=== PATIENT | male | born 1955 | race Caucasian/White ===

== ENCOUNTER 2016-06-01 08:29 | Inpatient (IN) | payer MEDICAID ==
--- NOTE | 2016-06-01 08:46 | EDPHY ---
H & P Stated Complaint: SOB while leaving [facility] this am Time Seen by Provider: 06/01/16 08:45 HPI/ROS: CHIEF COMPLAINT: Chest pain, shortness of breath, weakness, incontinence, dizziness. HISTORY OF PRESENT ILLNESS: The patient is a 61-year-old male with a history of COPD, asthma, and right lung removal who presents via EMS with right-sided chest pain, shortness of breath, and urinary incontinence. He was in the emergency department 4 days ago and diagnosed with bronchitis. He has been compliant with his antibiotics since discharge. He reports that since then he has become increasingly weak. He has been experiencing diarrhea and frequent urination and often cannot make it to the bathroom before going on himself. He admits ongoing lower back pain. Patient denies fever, nausea or vomiting. REVIEW OF SYSTEMS: Aside from elements discussed in the HPI, a comprehensive 10-point review of systems was reviewed and is negative. PAST MEDICAL HISTORY: COPD, asthma, right lung removed, bronchitis. SOCIAL HISTORY: Homeless. VITAL SIGNS: Reviewed by me, O2 sat 87% on room air. GENERAL: Disheveled. Thin, resting comfortably in no respiratory distress. HEENT: Atraumatic. Eyes: No icterus, no injection. Mouth: moist mucous membranes. Poor dentition No erythema or lesions. Neck: supple with no adenopathy. LUNGS: Bronchial breath sounds. No wheezes, rhonchi or rales. CARDIAC: Regular rate and rhythm, no rubs, murmurs or gallops. ABDOMEN: Mild RUQ pain. Soft, no guarding or rebound. BACK: Right flank pain. Diffuse lower back tenderness. EXTREMITIES: No trauma. No edema. Range of motion is normal throughout. NEURO: Alert and oriented, grossly nonfocal. SKIN: Warm and dry, no rash. PSYCHIATRIC: Normal mentation, no agitation. Portions of this note were transcribed by a medical director occupational health. I personally performed a history, physical exam, medical decision making, and confirmed accuracy of information the transcribed note. Source: Patient Exam Limitations: No limitations - Personal History Current Tetanus/Diphtheria Vaccine: Unsure Current Tetanus Diphtheria and Acellular Pertussis (TDAP): Unsure - Medical/Surgical History Hx Asthma: Yes Hx Chronic Respiratory Disease: Yes Hx Diabetes: No Hx Cardiac Disease: No Hx Renal Disease: No Hx Cirrhosis: No Hx Alcoholism: No Hx HIV/AIDS: No Hx Splenectomy or Spleen Trauma: No Other PMH: ashma, COPD, R lung removed - Social History Smoking Status: Current every day smoker Constitutional: Initial Vital Signs Temperature (C) 36.4 C 06/01/16 08:40 Heart Rate 97 06/01/16 08:40 Respiratory Rate 20 06/01/16 08:40 Blood Pressure 127/98 H 06/01/16 08:40 O2 Sat (%) 87 L 06/01/16 08:40 O2 Delivery Mode Nasal Cannula O2 (L/minute) 2 Allergies/Adverse Reactions: No Known Allergies Allergy (Verified 05/28/16 17:06) Home Medications: Medication Instructions Recorded Albuterol Sulfate [Albuterol HFA 2 puffs IH Q4-6PRN #1 inh 11/30/10 17g] AZITHROMYCIN [Z-PACK] 250 mg PO DAILY #6 tab 05/28/16 Albuterol [Proventil Inhaler HFA 1 - 2 puffs IH Q4H #1 mdi 05/28/16 (*)] Guaifenesin [Guaifenesin ER] 600 mg PO BID #14 tab.er.12h 05/28/16 predniSONE 60 mg PO DAILY #15 tab 05/28/16 Medical Decision Making - Diagnostics EKG Interpretation: 12-LEAD EKG: Please see the full report in [facility]. My interpretation: Normal sinus rhythm with ventricular premature complex and borderline right axis deviation. Unchanged from previous EKG 05/28/2016 (4 days ago). Imaging: X-ray of the chest was obtained. I viewed the images myself on the PACS system. My interpretation of the images is: Diffuse left-sided infiltrate versus edema. The radiologist interpretation is: left lower lobe pneumonia. I discussed the x-ray findings with the patient. ED Course/Re-evaluation: An IV was established and labs ordered. Chest x-ray, EKG ordered. WBC elevated at 15.01. Remainder of the patient's electrolytes are largely unremarkable. Patient's chest x-ray as interpreted by radiology as showing a developing left lower lobe pneumonia. Given his significant weakness, worsening chest x-ray, ongoing cough and shortness of breath, patient will be admitted to hospital. Patient's lactic acid is normal. Patient received Levaquin in the emergency department. 1118: Consulted with Na O'Sweeney, hospitalist. Differential Diagnosis: Differential diagnosis of the patient's weakness and cough was considered including but not limited to electrolyte abnormality, anemia, cardiac ischemia, viral versus bacterial bronchitis, asthma, COPD, pulmonary emboli, upper respiratory infection, lower respiratory infection, and bronchospasm. - Data Points Laboratory Results: Laboratory Results 06/01/16 09:40 06/01/16 09:40 06/01/16 06/01/16 10:35 09:40 WBC 15.01 H 10^3/uL (3.80-9.50) RBC 5.21 10^6/uL (4.40-6.38) Hgb 14.2 g/dL (13.7-17.5) Hct 42.5 % (40.0-51.0) MCV 81.6 fL (81.5-99.8) MCH 27.3 L pg (27.9-34.1) MCHC 33.4 g/dL (32.4-36.7) RDW 15.3 H % (11.5-15.2) Plt Count 254 10^3/uL (150-400) MPV 10.8 fL (8.7-11.7) Neut % (Auto) 79.1 H % (39.3-74.2) Lymph % (Auto) 11.7 L % (15.0-45.0) [place] % (Auto) 7.8 % (4.5-13.0) Eos % (Auto) 0.4 L % (0.6-7.6) Baso % (Auto) 0.5 % (0.3-1.7) Nucleat RBC Rel Count 0.0 % (0.0-0.2) Absolute Neuts (auto) 11.88 H 10^3/uL (1.70-6.50) Absolute Lymphs (auto) 1.76 10^3/uL (1.00-3.00) Absolute Monos (auto) 1.17 H 10^3/uL (0.30-0.80) Absolute Eos (auto) 0.06 10^3/uL (0.03-0.40) Absolute Basos (auto) 0.07 10^3/uL (0.02-0.10) Absolute Nucleated RBC 0.00 10^3/uL (0-0.01) Immature Gran % 0.5 % (0.0-1.1) Immature Gran # 0.07 10^3/uL (0.00-0.10) VBG Lactic Acid 1.0 mmol/L (0.7-2.1) Sodium 140 mEq/L (134-144) Potassium 4.2 mEq/L (3.5-5.2) Chloride 100 mEq/L (97-110) Carbon Dioxide 30 mEq/l (22-31) Anion Gap 10 mEq/L (8-16) BUN 18 mg/dL (7-23) Creatinine 0.7 mg/dL (0.7-1.3) Estimated GFR > 60 Glucose 78 mg/dL (70-100) Calcium 8.9 mg/dL (8.5-10.4) Total Bilirubin 1.2 mg/dL (0.1-1.4) Conjugated Bilirubin 0.3 mg/dL (0.0-0.5) Unconjugated Bilirubin 0.9 mg/dL (0.0-1.1) AST 47 IU/L (17-59) ALT 65 IU/L (21-72) Alkaline Phosphatase 76 IU/L (38-126) Troponin I < 0.012 ng/mL (0-0.034) NT-Pro-B Natriuret Pep 354 H pg/mL (0-125) Total Protein 6.8 g/dL (6.3-8.2) Albumin 3.5 g/dL (3.5-5.0) Urine Color YELLOW Urine Appearance CLEAR Urine pH 6.0 (5.0-7.5) Ur Specific [place] 1.017 (1.002-1.030) Urine Protein NEGATIVE (NEGATIVE) Urine Ketones NEGATIVE (NEGATIVE) Urine Blood NEGATIVE (NEGATIVE) Urine Nitrate NEGATIVE (NEGATIVE) Urine Bilirubin NEGATIVE (NEGATIVE) Urine Urobilinogen NEGATIVE EU (0.2-1.0) Ur Leukocyte Esterase NEGATIVE (NEGATIVE) Urine Glucose NEGATIVE (NEGATIVE) Influenza Typ A,B (DFA) Pending Influenza A & B (PCR) Pending Medications Given: Discontinued Medications Levofloxacin/Dextrose (Levaquin 750 Mg (Premix)) 150 mls @ 100 mls/hr IV ONCE ONE PRN Reason: Protocol Stop: 06/01/16 11:13 Last Admin: 06/01/16 10:20 Dose: 150 mls Departure - Departure Disposition: [facility] Inpatient Acute Clinical Impression: Pneumonia, Weakness Condition: Fair Referrals: NONE *PRIMARY CARE P,. [Primary Care Provider] - As per Instructions Report Scribed for: Vicky Berrios Report Scribed by: Lan Moore Date of Report: 06/01/16 Time of Report: 08:46
--- NOTE | 2016-06-01 08:52 | CPEKG ---
Heart Rate: 85 RR Interval: 706 P-R Interval: 132 QRSD Interval: 90 QT Interval: 356 QTC Interval: 424 P [place]: 49 QRS [place]: 81 T Wave [place]: 60 EKG Severity - OTHERWISE NORMAL ECG - EKG Impression: SINUS RHYTHM EKG Impression: VENTRICULAR PREMATURE COMPLEX EKG Impression: BORDERLINE RIGHT AXIS DEVIATION Electronically Signed By: Vicky Berrios 01-Jun-2016 18:12:41
--- NOTE | 2016-06-01 09:54 | DX ---
Chest, Two Views June 01, 2016 at 0851 Hours History: Dyspnea, chest pain, shortness of breath, cough, right pneumonectomy for trauma. Comparison: May 28, 2016. Findings: Status post right pneumonectomy with a large right hydropneumothorax again noted, similar t o previous study. Mediastinal shift towards the right due to right pneumonectomy. Possible early left lower lobe pneumonia. No change in partial visualization of cardiac silhouette. Impressions: 1. Prior right pneumonectomy with residual hydropneumothorax. 2. Possible early left lower lobe pneumonia.
[2016-06-01 09:57] LABS: % IMMATURE GRANULYOCYTES 0.5 % (0.0-1.1); ABSOLUTE IMMATURE GRANULOCYTES 0.07 10^3/uL (0.00-0.10); ADD DIFF? NO; ADD MORPH? NO; ADD SCAN? NO; ATYPICAL LYMPHOCYTE FLAG 0 (0-99); FRAGMENT RBC FLAG 0 (0-99); HEMATOCRIT 42.5 % (40.0-51.0); HEMOGLOBIN 14.2 g/dL (13.7-17.5); LEFT SHIFT FLG 30 (0-99); LIPEMIA HEMOLYSIS FLAG 80 (0-99); MEAN CELL HEMOGLOBIN 27.3 pg (27.9-34.1); MEAN CELL HEMOGLOBIN CONCENTR. 33.4 g/dL (32.4-36.7); MEAN CELL VOLUME 81.6 fL (81.5-99.8); MEAN PLATELET VOLUME 10.8 fL (8.7-11.7); PLATELET CLUMPS FLAG 0 (0-99); PLATELET COUNT 254 10^3/uL (150-400); RED BLOOD CELL COUNT 5.21 10^6/uL (4.40-6.38); RED CELL DISTRIBUTION WIDTH 15.3 % (11.5-15.2)
[2016-06-01 10:13] LABS: ALANINE AMINOTRANSFERASE 65 IU/L (21-72); ALBUMIN 3.5 g/dL (3.5-5.0); ALKALINE PHOSPHATASE 76 IU/L (38-126); ANION GAP 10 mEq/L (8-16); ASPARTATE AMINOTRANSFERASE 47 IU/L (17-59); BILIRUBIN,TOTAL 1.2 mg/dL (0.1-1.4); BILIRUBIN-CONJUGATED 0.3 mg/dL (0.0-0.5); BILIRUBIN-UNCONJUGATED 0.9 mg/dL (0.0-1.1); CALCIUM 8.9 mg/dL (8.5-10.4); CARBON DIOXIDE 30 mEq/l (22-31); CHLORIDE 100 mEq/L (97-110); CREATININE 0.7 mg/dL (0.7-1.3); GLOMERULAR FILTRATION RATE > 60; GLUCOSE 78 mg/dL (70-100); POTASSIUM 4.2 mEq/L (3.5-5.2); SODIUM 140 mEq/L (134-144); TOTAL PROTEIN 6.8 g/dL (6.3-8.2)
[2016-06-01 10:24] LABS: TROPONIN I < 0.012 ng/mL (0-0.034)
[2016-06-01 10:46] LABS: COLOR YELLOW; LEUKOCYTE ESTERASE,URINE NEGATIVE (NEGATIVE); NITRITE,URINE NEGATIVE (NEGATIVE)
[2016-06-01] MEDS ORDERED: IPRATROPIUM/ALBUTEROL 3 ML DEYVIAL IH ONE (10:47)
[2016-06-01] MEDS ORDERED: ONDANSETRON 4 MG/2 ML VIAL IVP PRN (11:49)
[2016-06-01] MEDS ORDERED: ONDANSETRON DISINTEGRATING 4 MG TAB PO PRN (11:49)
[2016-06-01] MEDS ORDERED: ACETAMINOPHEN 325 MG TAB PO PRN (11:49)
[2016-06-01 12:28] LABS: ETHANOL SERUM < 10 mg/dL (0-10)
[2016-06-01] MEDS: NS 1,000 ML IV SCH ×3 (12:55→21:34)
[2016-06-01] MEDS: IPRATROPIUM/ALBUTEROL 3 ML DEYVIAL IH SCH ×3 (14:00→20:39)
[2016-06-01] MEDS ORDERED: ALBUTEROL 60 PUFFS/8 GM MDI IH PRN (15:31)
--- NOTE | 2016-06-01 16:08 | GHP ---
[f rep st] HISTORY AND PHYSICAL DATE OF ADMISSION: 06/01/2016 CHIEF COMPLAINT: Shortness of breath. HISTORY OF PRESENT ILLNESS: The patient is a homeless male who presented to the emergency room with complaints of shortness of breath. He has a history of COPD as well as asthma and right lung resection. He denies any chest pain, headache, fever, or nausea and vomiting. He states that approximately a week and half ago, he became ill. He presented to the emergency room on 05/28/2016 for further evaluation. At that time he was diagnosed with bronchitis and discharged with a prescription for azithromycin and steroids. He re-presents to the emergency room today on 06/01/2016 with increased weakness as well as a cough and generalized failure to thrive. In discussion with the emergency room physician, Dr. Vicky Berrios, she indicated that the patient was incontinent of urine. He has not been incontinent of urine since arriving to the floor or during my assessment. REVIEW OF SYSTEMS: Comprehensive 10-point review of systems negative other than noted in the HPI. PAST MEDICAL HISTORY: COPD, asthma, bronchitis. PAST SURGICAL HISTORY: Right lung resection, which the patient is unable to clarify exactly why this was necessary. SOCIAL HISTORY: The patient is homeless. He tells me that he sometimes smokes methamphetamines but does not use IV drugs for the last 2 years. He smokes cigarettes. He smokes tobacco on a daily basis as well as marijuana. He has a history of heavy alcohol use. FAMILY HISTORY: Has been reviewed with the patient but is noncontributory at this time. ALLERGIES: None. PHYSICAL EXAM: GENERAL: The patient is alert, disheveled, cachectic. VITAL SIGNS: Afebrile at 36.9, pulse is 92, respiratory rate is 16, blood pressure is 102/74, is saturating 96% on 4.5 L. HEENT: Normocephalic, atraumatic. Mucosal membranes are dry. Poor dentition. NECK: Supple. LUNGS: Decreased in the bases bilaterally. No wheezes or rhonchi appreciated. CARDIOVASCULAR: There is a regular rate and rhythm. No rubs or murmurs noted. GASTROINTESTINAL : Abdomen, bowel sounds are positive. Soft and nontender. There is no guarding or rigidity appreciated. SKIN: Without rashes or lesions. Warm and dry. EXTREMITIES: No noted edema. Range of motion is intact. NEUROLOGICAL: The patient is grossly intact. HOME MEDICATIONS: Previously azithromycin, albuterol, guaifenesin. DIAGNOSTIC EVALUATION/LABORATORY: White count is 15. He is negative for the flu. EKG notes a sinus rhythm with ventricular premature complexes. Chest x- ray shows right pneumonectomy and possible early left lower lobe pneumonia. ASSESSMENT AND PLAN: The patient is a 61-year-old male who presented to the emergency room with complaint of shortness of breath. He has been evaluated and diagnosed with: 1. Community-acquired pneumonia. Patient was recently discharged 3 days prior with azithromycin and prednisone. It seems that he requires more aggressive antibiotic therapy. He has been initiated on Levaquin at the time of admission with supplemental oxygen. Will continue the pneumonia protocol during this hospitalization. 2. Acute hypoxemic respiratory failure. Again, this is likely secondary to the patient's acute pneumonia. I anticipate that this will continue to improve during the course of his hospitalization. 3. Leukocytosis. This is multifactorial given the fact the patient has infectious process as well as recent prednisone use. We will continue to monitor his laboratory evaluations. 4. History of right lung resection. This appears to be stable at this time. If further indicated, the patient may require a CT scan of his chest. 5. History of alcohol use. The patient denies going through delirium tremens when he is abstaining from alcohol. We will continue to monitor this and if needed, initiate CIWA protocol. 6. History of drug abuse as well as chronic tobacco abuse. Cessation has been recommended, and counseling has been provided. 7. Disposition: The patient will be admitted to inpatient status given the need for aggressive IV antibiotic therapy and further medical management. 8. DVT prophylaxis. I have started the patient on daily Lovenox. 9. Severe malnutrition: BMI of 14. Further action will be taken as needed during the patient's hospital course. /[id number]/MODL MTDD
[2016-06-01 16:59] LABS: PHENCYCLIDINE URINE BCH < 6 ng/ml (NEGATIVE); TETRAHYDROCANNABINOL URINE 22 ng/mL (NEGATIVE)
[2016-06-01 17:07] LABS: PHENCYCLIDINE URINE BCH NEGATIVE (NEGATIVE); TETRAHYDROCANNABINOL URINE NEGATIVE (NEGATIVE)
[2016-06-01] MEDS: guaiFENesin 600 MG TAB.ER PO SCH ×2 (21:34→21:57)
[2016-06-02 05:02] LABS: % IMMATURE GRANULYOCYTES 0.5 % (0.0-1.1); ABSOLUTE IMMATURE GRANULOCYTES 0.07 10^3/uL (0.00-0.10); ADD DIFF? NO; ADD MORPH? NO; ADD SCAN? NO; ATYPICAL LYMPHOCYTE FLAG 10 (0-99); FRAGMENT RBC FLAG 0 (0-99); HEMATOCRIT 43.6 % (40.0-51.0); HEMOGLOBIN 14.4 g/dL (13.7-17.5); LEFT SHIFT FLG 20 (0-99); LIPEMIA HEMOLYSIS FLAG 80 (0-99); MEAN CELL HEMOGLOBIN 27.2 pg (27.9-34.1); MEAN CELL VOLUME 82.4 fL (81.5-99.8); MEAN PLATELET VOLUME 10.7 fL (8.7-11.7); PLATELET CLUMPS FLAG 10 (0-99); PLATELET COUNT 228 10^3/uL (150-400); RED BLOOD CELL COUNT 5.29 10^6/uL (4.40-6.38); RED CELL DISTRIBUTION WIDTH 15.1 % (11.5-15.2)
[2016-06-02 05:08] LABS: ANION GAP 9 mEq/L (8-16); CALCIUM 8.8 mg/dL (8.5-10.4); CARBON DIOXIDE 28 mEq/l (22-31); CHLORIDE 104 mEq/L (97-110); CREATININE 0.8 mg/dL (0.7-1.3); GLOMERULAR FILTRATION RATE > 60; GLUCOSE 104 mg/dL (70-100); POTASSIUM 4.3 mEq/L (3.5-5.2); SODIUM 141 mEq/L (134-144)
[2016-06-02] MEDS: IPRATROPIUM/ALBUTEROL 3 ML DEYVIAL IH SCH ×4 (06:07→21:36)
[2016-06-02] MEDS ORDERED: ENOXAPARIN 30 MG/0.3 ML SYR SC SCH (09:00)
[2016-06-02] MEDS ORDERED: predniSONE 20 MG TAB PO SCH (09:00)
[2016-06-02] MEDS: guaiFENesin 600 MG TAB.ER PO SCH ×2 (09:41→21:27)
[2016-06-02] MEDS ORDERED: IOPAMIDOL (ISOVUE 370) 100 ML BTL IV ONE (14:02)
--- NOTE | 2016-06-02 16:07 | HOSPPROG ---
Hospitalist Progress Note Assessment/Plan: * COPD exacerbation -steroids, nebs * PNA -levaquin * Acute respiratory failure -wean O2 back to RA prior to discharge * Hemoptysis -check CT chest r/o malignancy, PE * Severe protein calorie malnutrition - BMI 14 * s/p right lung lobectomy due to trauma * Tobacco dependence * Meth/THC/Etoh use * Homeless Subjective: Still very SOB, no better, coughing up blood Objective: Vital Signs Temp Pulse Resp BP Pulse Ox 37.5 C 105 H 16 94/76 L 95 06/02/16 12:00 06/02/16 12:00 06/02/16 12:00 06/02/16 12:00 06/02/16 12:00 Laboratory Results 06/02/16 04:41 06/02/16 04:41 06/01/16 06/02/16 06/03/16 05:59 05:59 05:59 Output Total 1175 Balance -1175 - Physical Exam Constitutional: no apparent distress, appears nourished, not in pain Cardiovascular: regular rate and rhythym, no murmur, rub, or gallop Respiratory: no respiratory distress, no rales or rhonchi, clear to auscultation Gastrointestinal: normoactive bowel sounds, soft, non-tender abdomen, no palpable masses Skin: no rashes or abrasions, no fluctuance, no induration Neurologic: AAOx3, sensation intact bilaterally Psychiatric: interacting appropriately, not anxious, not encephalopathic, thought process linear ICD10 Worksheet Patient Problems: Problems Problem Status Diagnosed Pneumonia Acute Weakness Acute
--- NOTE | 2016-06-02 17:02 | CT ---
Contrast-Enhanced CT Scan of the Chest (CT Pulmonary Artery Angiography) Clinical History: 61-year-old male inpatient with shortness of breath and hypoxia. Rule out PE. Technique: A timing bolus was used. The patient received 90 mL of IV Isovue-370 without complication, and a multidetector helical CT scan was obtained from the base the neck inferiorly to the upper abdo men, with images reformatted at 1.50 and 4/3 mm increments, and reviewed at a variety of window and l evel settings. Multiplanar reconstructions are reviewed on the workstation. The DFOV is 36.0 cm. A do se reduction protocol was used. Comparison Study: Chest radiography dated June 01, 2016, at 8:51 a.m. Findings: CT Angiography: The patient has had a prior right pneumonectomy with a right hemithoracic hydropneumo thorax is present. The main right pulmonary artery is truncated distally; however, there is a rounded filling defect measuring 17 x 14 mm in diameter seem distally on the right side. There is no migrati on of the filling defect to the bifurcation, or involvement of the main pulmonary artery, the main le ft pulmonary artery, or the left first, second, or third order pulmonary artery segments. The thoraci c aortic contour is normal in size, with no aneurysm or dissection. There is a normal anatomic course of the great vessels off of the aortic arch. The descending thoracic aorta and the visualized upper abdominal aorta appear normal. The heart size is normal. There is trace anterior/inferior pericardial thickening. Contrast-Enhanced CT Scan of the Chest: As mentioned above, there is volume loss associated with a ri ght pneumonectomy, with the presence of a right hydropneumothorax (there are old posttraumatic change s to the right rib cage). There is hyperexpansion of the left lung. Mild medial left apical subpleura l bullous change is noted. There is some minimal subpleural thickening posteriorly in the left lower lobe, and there is a 10 mm irregularly-marginated subpleural nodule seen in the left lower lobe on se jenni 7, image 123 (this is nonspecific, and followup CT imaging in 3 to 6 months is recommended). The re is no pleural effusion on the left side, and there is no adenopathy. The thoracic vertebral body h eights and posterior alignments are maintained. The visualized upper abdomen is notable for moderate gastric distention with ingested debris, and moderate constipation. Impression: 1. The patient has had a prior right pneumonectomy and the main right pulmonary artery is truncated d istally; however, there is a 17 x 14 mm filling defect suggestive of pulmonary artery embolus. There is no migration of embolic material into the left pulmonary arterial tree. 2. Left lung hyperexpansion with some subpleural bullous change. 3. There is a 10 mm subpleural nodule seen in the posterior left lower lobe, which could represent so me subsegmental atelectasis, scar, or a groundglass nodule of other etiology; consider followup CT re evaluation in 3 to 6 months. Results regarding the PE were conveyed to Sultana the nurse on 3E at extension [id number]. A test result has been communicated to a licensed care provider and documented in [employer], 4:57:04 PM , 06/02/2016, [employer] Message ID [id number].
[2016-06-02 17:49] LABS: INR 1.16 (0.83-1.16); PROTIME(PATIENT) 14.8 SEC (12.0-15.0)
[2016-06-02 17:50] LABS: APTT 28.9 SEC (23.0-38.0)
[2016-06-02] MEDS ORDERED: HEPARIN 10,000 UNIT/10 ML MDV IVP ONE (18:00)
[2016-06-02] MEDS: HEPARIN 10,000 UNIT/10 ML MDV IVP PRN (18:09)
[2016-06-02] MEDS: HEPARIN/DEXTROSE 500 ML IV SCH (19:22)
[2016-06-02] MEDS ORDERED: IBUPROFEN 600 MG TAB PO ONE (21:43)
[2016-06-03] MEDS: HYDROCODONE/APAP 5/325 TAB PO PRN ×3 (00:20→20:04)
[2016-06-03] MEDS: HEPARIN 10,000 UNIT/10 ML MDV IVP PRN ×3 (01:51→15:04)
[2016-06-03] MEDS: IPRATROPIUM/ALBUTEROL 3 ML DEYVIAL IH SCH ×4 (06:07→21:06)
[2016-06-03 06:51] LABS: % IMMATURE GRANULYOCYTES 0.9 % (0.0-1.1); ABSOLUTE IMMATURE GRANULOCYTES 0.19 10^3/uL (0.00-0.10); ADD DIFF? NO; ADD MORPH? NO; ADD SCAN? NO; ATYPICAL LYMPHOCYTE FLAG 10 (0-99); FRAGMENT RBC FLAG 0 (0-99); HEMATOCRIT 38.6 % (40.0-51.0); HEMOGLOBIN 12.8 g/dL (13.7-17.5); LEFT SHIFT FLG 30 (0-99); LIPEMIA HEMOLYSIS FLAG 80 (0-99); MEAN CELL HEMOGLOBIN 27.1 pg (27.9-34.1); MEAN CELL HEMOGLOBIN CONCENTR. 33.2 g/dL (32.4-36.7); MEAN CELL VOLUME 81.8 fL (81.5-99.8); MEAN PLATELET VOLUME 10.9 fL (8.7-11.7); PLATELET CLUMPS FLAG 0 (0-99); PLATELET COUNT 234 10^3/uL (150-400); RED BLOOD CELL COUNT 4.72 10^6/uL (4.40-6.38); RED CELL DISTRIBUTION WIDTH 15.1 % (11.5-15.2)
[2016-06-03] MEDS: guaiFENesin 600 MG TAB.ER PO SCH ×2 (08:54→20:00)
[2016-06-03] MEDS: predniSONE 20 MG TAB PO SCH (08:55)
[2016-06-03] MEDS: HEPARIN/DEXTROSE 500 ML IV SCH (15:06)
--- NOTE | 2016-06-03 16:36 | HOSPPROG ---
Hospitalist Progress Note Assessment/Plan: * COPD exacerbation with acute bronchitis -steroids, nebs, doxycycline * Acute PE -IV heparin - will transition to PO Xarelto * Pulmonary nodule -outpatient follow-up * Acute respiratory failure -wean O2 back to RA prior to discharge * Severe protein calorie malnutrition - BMI 14 * s/p right lung lobectomy due to trauma * Tobacco dependence * Meth/THC/Etoh use * Homeless Subjective: Still SOB Objective: Vital Signs Temp Pulse Resp BP Pulse Ox 36.8 C 94 18 97/65 L 93 06/03/16 16:00 06/03/16 16:00 06/03/16 16:00 06/03/16 16:00 06/03/16 16:00 Laboratory Results 06/03/16 06:40 06/02/16 04:41 06/02/16 06/03/16 06/04/16 05:59 05:59 05:59 Intake Total 640 Output Total 1175 500 600 Balance -1175 -500 40 PT 14.8 SEC (12.0-15.0) 06/02/16 17:34 INR 1.16 (0.83-1.16) 06/02/16 17:34 - Physical Exam Constitutional: no apparent distress, appears nourished, not in pain Cardiovascular: regular rate and rhythym, no murmur, rub, or gallop Respiratory: no respiratory distress, no rales or rhonchi, clear to auscultation Gastrointestinal: normoactive bowel sounds, soft, non-tender abdomen, no palpable masses Skin: no rashes or abrasions, no fluctuance, no induration Neurologic: AAOx3, sensation intact bilaterally Psychiatric: interacting appropriately, not anxious, not encephalopathic, thought process linear ICD10 Worksheet Patient Problems: Problems Problem Status Diagnosed Pneumonia Acute Weakness Acute
[2016-06-03] MEDS: RIVAROXABAN 15 MG TAB PO SCH (16:57)
[2016-06-03] MEDS: DOXYCYCLINE HYCLATE 100 MG CAP/TAB PO SCH (20:00)
[2016-06-04] MEDS: IPRATROPIUM/ALBUTEROL 3 ML DEYVIAL IH SCH ×4 (05:27→21:32)
[2016-06-04 05:29] LABS: % IMMATURE GRANULYOCYTES 1.6 % (0.0-1.1); ABSOLUTE IMMATURE GRANULOCYTES 0.29 10^3/uL (0.00-0.10); ADD DIFF? NO; ADD MORPH? NO; ADD SCAN? NO; ATYPICAL LYMPHOCYTE FLAG 10 (0-99); FRAGMENT RBC FLAG 20 (0-99); HEMOGLOBIN 12.6 g/dL (13.7-17.5); LEFT SHIFT FLG 50 (0-99); LIPEMIA HEMOLYSIS FLAG 80 (0-99); MEAN CELL HEMOGLOBIN 27.2 pg (27.9-34.1); MEAN CELL HEMOGLOBIN CONCENTR. 32.3 g/dL (32.4-36.7); MEAN CELL VOLUME 84.1 fL (81.5-99.8); MEAN PLATELET VOLUME 11.8 fL (8.7-11.7); PLATELET CLUMPS FLAG 0 (0-99); PLATELET COUNT 257 10^3/uL (150-400); RED BLOOD CELL COUNT 4.64 10^6/uL (4.40-6.38); RED CELL DISTRIBUTION WIDTH 15.6 % (11.5-15.2)
[2016-06-04] MEDS: RIVAROXABAN 15 MG TAB PO SCH ×2 (08:06→17:55)
[2016-06-04] MEDS: DOXYCYCLINE HYCLATE 100 MG CAP/TAB PO SCH ×2 (08:06→21:11)
[2016-06-04] MEDS: guaiFENesin 600 MG TAB.ER PO SCH (08:06)
[2016-06-04] MEDS: predniSONE 20 MG TAB PO SCH (08:07)
--- NOTE | 2016-06-04 13:14 | HOSPPROG ---
Hospitalist Progress Note Assessment/Plan: * COPD exacerbation with acute bronchitis -steroids, nebs, doxycycline * Acute PE -PO Xarelto * Pulmonary nodule -outpatient follow-up * Acute respiratory failure -wean O2 back to RA prior to discharge * Severe protein calorie malnutrition - BMI 14 * s/p right lung lobectomy due to trauma * Tobacco dependence * Meth/THC/Etoh use * Homeless Subjective: SOB better Objective: Vital Signs Temp Pulse Resp BP Pulse Ox 36.8 C 79 18 113/79 89 L 06/04/16 07:22 06/04/16 10:28 06/04/16 10:28 06/04/16 07:22 06/04/16 10:28 Laboratory Results 06/04/16 04:27 06/02/16 04:41 06/03/16 06/04/16 06/05/16 05:59 05:59 05:59 Intake Total 1290 Output Total 500 1200 Balance -500 90 PT 14.8 SEC (12.0-15.0) 06/02/16 17:34 INR 1.16 (0.83-1.16) 06/02/16 17:34 - Physical Exam Constitutional: no apparent distress, appears nourished, not in pain Cardiovascular: regular rate and rhythym, no murmur, rub, or gallop Respiratory: no respiratory distress, no rales or rhonchi, clear to auscultation Gastrointestinal: normoactive bowel sounds, soft, non-tender abdomen, no palpable masses Skin: no rashes or abrasions, no fluctuance, no induration Neurologic: AAOx3, sensation intact bilaterally Psychiatric: interacting appropriately, not anxious, not encephalopathic, thought process linear ICD10 Worksheet Patient Problems: Problems Problem Status Diagnosed Pneumonia Acute Weakness Acute
[2016-06-04] MEDS: HYDROCODONE/APAP 5/325 TAB PO PRN (21:10)
[2016-06-05] MEDS: IPRATROPIUM/ALBUTEROL 3 ML DEYVIAL IH SCH (06:12)
[2016-06-05 06:22] LABS: ADD DIFF? YES; ADD MORPH? NO; ADD SCAN? NO; ATYPICAL LYMPHOCYTE FLAG 20 (0-99); FRAGMENT RBC FLAG 0 (0-99); HEMATOCRIT 40.4 % (40.0-51.0); HEMOGLOBIN 13.4 g/dL (13.7-17.5); LEFT SHIFT FLG 30 (0-99); LIPEMIA HEMOLYSIS FLAG 80 (0-99); MEAN CELL HEMOGLOBIN 27.3 pg (27.9-34.1); MEAN CELL HEMOGLOBIN CONCENTR. 33.2 g/dL (32.4-36.7); MEAN CELL VOLUME 82.3 fL (81.5-99.8); MEAN PLATELET VOLUME 10.9 fL (8.7-11.7); PLATELET CLUMPS FLAG 0 (0-99); PLATELET COUNT 298 10^3/uL (150-400); RED BLOOD CELL COUNT 4.91 10^6/uL (4.40-6.38); RED CELL DISTRIBUTION WIDTH 15.6 % (11.5-15.2)
[2016-06-05 06:58] LABS: ACANTHOCYTES 1+; ELLIPTOCYTES 1+; GIANT PLATELETS PRESENT; PLATELET ESTIMATE ADEQUATE (ADEQ); TOXIC GRANULATION PRESENT
[2016-06-05] MEDS: RIVAROXABAN 15 MG TAB PO SCH ×2 (08:46→17:52)
[2016-06-05] MEDS: DOXYCYCLINE HYCLATE 100 MG CAP/TAB PO SCH ×2 (08:47→20:19)
[2016-06-05] MEDS: predniSONE 20 MG TAB PO SCH (08:47)
[2016-06-05] MEDS ORDERED: GABAPENTIN 300 MG CAP PO ONE (10:13)
[2016-06-05] MEDS ORDERED: ALBUTEROL 3 ML DEYVIAL IH PRN (10:16)
[2016-06-05] MEDS: TIOTROPIUM INHALER 18 MCG/DOSE 5 DOSE/MDI IH SCH (10:39)
[2016-06-05] MEDS: FLUTICASONE/SALMETER 250/50MCG DISKUS IH SCH ×2 (10:39→22:11)
[2016-06-05] MEDS: NICOTINE 21 MG/24 HR PATCH TD SCH (11:04)
--- NOTE | 2016-06-05 14:48 | HOSPPROG ---
Hospitalist Progress Note Assessment/Plan: * COPD exacerbation with acute bronchitis -steroids, nebs, doxycycline * Acute PE -PO Xarelto * Pulmonary nodule -outpatient follow-up * Acute respiratory failure -back to RA * Severe protein calorie malnutrition - BMI 14 * s/p right lung lobectomy due to trauma * Recent frostbite with residual neuropathy -start gabapentin * Tobacco dependence -patch * Meth/THC/Etoh use * Homeless - arranging SNF Subjective: No new complaints. Constant burning of feet since frostbite, no residual skin breakdown. Objective: Vital Signs Temp Pulse Resp BP Pulse Ox 36.7 C 93 18 109/69 90 L 06/05/16 07:57 06/05/16 07:57 06/05/16 07:57 06/05/16 07:57 06/05/16 07:57 Laboratory Results 06/05/16 05:08 06/02/16 04:41 06/04/16 06/05/16 06/06/16 05:59 05:59 05:59 Intake Total 1290 200 Output Total 1200 1125 1150 Balance 90 -925 -1150 PT 14.8 SEC (12.0-15.0) 06/02/16 17:34 INR 1.16 (0.83-1.16) 06/02/16 17:34 - Physical Exam Constitutional: no apparent distress, appears nourished, not in pain Cardiovascular: regular rate and rhythym, no murmur, rub, or gallop Respiratory: no respiratory distress, no rales or rhonchi, clear to auscultation Gastrointestinal: normoactive bowel sounds, soft, non-tender abdomen, no palpable masses Skin: no rashes or abrasions, no fluctuance, no induration Neurologic: AAOx3, sensation intact bilaterally Psychiatric: interacting appropriately, not anxious, not encephalopathic, thought process linear ICD10 Worksheet Patient Problems: Problems Problem Status Diagnosed Pneumonia Acute Weakness Acute
[2016-06-06 05:28] LABS: ADD DIFF? YES; ADD MORPH? NO; ADD SCAN? NO; ATYPICAL LYMPHOCYTE FLAG 20 (0-99); FRAGMENT RBC FLAG 0 (0-99); HEMATOCRIT 44.9 % (40.0-51.0); HEMOGLOBIN 14.8 g/dL (13.7-17.5); LEFT SHIFT FLG 40 (0-99); LIPEMIA HEMOLYSIS FLAG 80 (0-99); MEAN CELL HEMOGLOBIN 26.6 pg (27.9-34.1); MEAN CELL VOLUME 80.8 fL (81.5-99.8); MEAN PLATELET VOLUME 10.9 fL (8.7-11.7); PLATELET CLUMPS FLAG 10 (0-99); PLATELET COUNT 326 10^3/uL (150-400); RED BLOOD CELL COUNT 5.56 10^6/uL (4.40-6.38); RED CELL DISTRIBUTION WIDTH 15.6 % (11.5-15.2)
[2016-06-06 06:28] LABS: ELLIPTOCYTES 1+; PLATELET ESTIMATE ADEQUATE (ADEQ)
[2016-06-06 07:18] VITALS: BP 105/80; TEMP 97.6; O2SAT 93
[2016-06-06] MEDS: DOXYCYCLINE HYCLATE 100 MG CAP/TAB PO SCH (07:55)
[2016-06-06] MEDS: RIVAROXABAN 15 MG TAB PO SCH ×2 (07:55→17:13)
[2016-06-06] MEDS: NICOTINE 21 MG/24 HR PATCH TD SCH (07:56)
[2016-06-06] MEDS ORDERED: GABAPENTIN 300 MG CAP PO SCH (09:00)
[2016-06-06] MEDS: predniSONE 20 MG TAB PO SCH (09:14)
[2016-06-06] MEDS: TIOTROPIUM INHALER 18 MCG/DOSE 5 DOSE/MDI IH SCH (09:40)
[2016-06-06] MEDS: FLUTICASONE/SALMETER 250/50MCG DISKUS IH SCH (09:40)
[2016-06-06 09:45] VITALS: PULSE 82; RESP 18
--- NOTE | 2016-06-06 10:41 | PDIAF ---
- Diagnosis Diagnosis: COPD exacerbation Code Status: Full Code - Medication Management Discharge Medications: Medications to Continue on Transfer Guaifenesin [Guaifenesin ER] 600 mg PO BID #14 tab.er.12h 05/28/16 [Last Taken 06/01/16] Albuterol [Proventil Inhaler HFA (*)] 1 - 2 puffs IH Q4H PRN 06/01/16 [Last Taken Unknown] Doxycycline Hyclate [Vibramycin 100 MG (*)] 100 mg PO BID #0 capsule 06/06/16 [ Last Taken Unknown] Fluticasone/Salmeter 250/50Mcg [Advair 250/50 (*)] 1 puffs IH BID #0 disk [Last Taken Unknown] Gabapentin [Neurontin 300 MG (*)] 300 mg PO BID #0 cap 06/06/16 [Last Taken Unknown] Hydrocodone/APAP 5/325 [[place] 5/325 (*)] 1 - 2 tab PO Q4HRS PRN #0 tab 06/06/16 [Last Taken Unknown] Nicotine [Nicoderm Cq 21 mg (*)] 21 mg TD DAILY #0 patch 06/06/16 [Last Taken Unknown] Rivaroxaban [Xarelto 15mg (*)] 15 mg PO BIDMEAL #0 tab 06/06/16 [Last Taken Unknown] Tiotropium Inhaler [Spiriva Handihaler] 18 mcg IH DAILY #0 mdi 06/06/16 [Last Taken Unknown] predniSONE 40 mg PO DAILY #0 tablet 06/06/16 [Last Taken Unknown] Fdc Antibiotics: doxycycline 100mg PO BID - dc on 06/11/16; pred 40mg PO daily - dc on 06/07/16 Discharge Medications: Refer to the Discharge Home Medication list for PRN reason. - Orders Services needed: Registered Nurse, Certified Medical Assistant Prn, Physical Therapy, Occupational Therapy - Follow Up Care Current Providers and Referrals: NONE *PRIMARY CARE P,. [Primary Care Provider] - As per Instructions
--- NOTE | 2016-06-06 10:58 | GDS ---
[f rep st] DISCHARGE SUMMARY ALL DIAGNOSES: 1. Chronic obstructive pulmonary disease exacerbation with acute bronchitis. 2. Acute pulmonary embolus. 3. Pulmonary nodule needing outpatient followup. 4. Acute respiratory failure, currently on room air. 5. Severe protein calorie malnutrition. 6. 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 7. Next recent frostbite with some neuropathy. 8. Tobacco dependence. 9. Homeless. HOSPITAL COURSE: This is a 61-year-old man who was admitted with shortness of breath. Etiology is l ikely COPD exacerbation, as well as pulmonary embolus. He has been treated for a COPD exacerbation w ith steroids, doxycycline, and nebulizers. Recommend that he discontinue steroids on 06/07/2016, aft er his dose on that day, discontinue doxycycline on 06/11/2016, after his doses on that day. He has been started on Xarelto for a pulmonary embolus. He is currently getting 15 mg p.o. b.i.d. R ecommendation is for b.i.d. dosing for 21 days, then switch to daily dosing of 20 mg daily. He recei jose carlos 1 dose of Xarelto on 06/03/2016, at 5 p.m. He had an incidental pulmonary nodule seen on CT scan. This will need outpatient followup. Recommen dation is CT re-evaluation in 3-6 months. He had recent frostbite, has residual neuropathy. Has been started on gabapentin since he has been a dmitted here. BILLING: I spent more than 30 minutes on the day of discharge coordinating care. /[id number]/MODL
== END 2016-06-06 17:38 | DRG 175 ==
LOC: EDUNIT# → OBSVTOIN 11:49 → F3E 12:12
PROVIDERS: ADMIT Hospitalist; ATTEND Student in an Organized Health Care Education/Training Program
DX: I26.99 Other pulmonary embolism without acute cor pulmonale (principal); J44.0 Chronic obstructive pulmonary disease with (acute) lower respiratory infection; J44.1 Chronic obstructive pulmonary disease with (acute) exacerbation; J96.01 Acute respiratory failure with hypoxia; E43 Unspecified severe protein-calorie malnutrition; Z68.1 Body mass index [BMI] 19.9 or less, adult; G60.8 Other hereditary and idiopathic neuropathies; X31.XXXS Exposure to excessive natural cold, sequela; F17.210 Nicotine dependence, cigarettes, uncomplicated; R91.8 Other nonspecific abnormal finding of lung field; Z90.2 Acquired absence of lung [part of]; Z59.0 Homelessness
CPT/HCPCS: 85520-90; 96365; 97116-GP; 97162-GP; 97165-GO; 97535-GO; G0479; G0480; J1644; J1650; J1956; Q9967

== ENCOUNTER 2016-07-20 21:56 | Observation (INO) | payer MEDICAID ==
[2016-07-20] MEDS ORDERED: methylPREDNISolone SOD SUCC 125 MG/2 ML VIAL IVP ONE (22:03)
[2016-07-20] MEDS ORDERED: IPRATROPIUM/ALBUTEROL 3 ML DEYVIAL IH ONE (22:03)
--- NOTE | 2016-07-20 22:08 | EDPHY ---
H & P Stated Complaint: SOB and cough beginning today, Hx of PE Time Seen by Provider: 07/20/16 22:01 HPI/ROS: CHIEF COMPLAINT: Shortness of breath HISTORY OF PRESENT ILLNESS: Patient is a 61-year-old homeless man who comes from the [facility] complaining of a cough and shortness of breath. He has a history of COPD and was admitted for an exacerbation 2 months ago. At that time he was also found to have a pulmonary embolus and was started on Xarelto. He states that he has not taken that since being discharged from the hospital. He claims that he was not given a prescription. He also has a history of right Pneumonectomy secondary to trauma remotely. Also tobacco dependence. He is hypoxic at 87% on room air on arrival and has a fever 37.9. REVIEW OF SYSTEMS: Constitutional: denies: chills, fever, recent illness, recent injury EENTM: denies: blurred vision, double vision, nose congestion Respiratory: See HPI Cardiac: denies: chest pain, irregular heart rate, lightheadedness, palpitations Gastrointestinal/Abdominal: denies: abdominal pain, diarrhea, nausea, vomiting, blood streaked stools Genitourinary: denies: dysuria, frequency, hematuria, pain Musculoskeletal: denies: joint pain, muscle pain Skin: denies: lesions, rash, jaundice, bruising Neurological: denies: headache, numbness, paresthesia, tingling, dizziness, weakness Hematologic/Lymphatic: denies: blood clots, easy bleeding, easy bruising Immunologic/allergic: denies: HIV/AIDS, transplant EXAM: GENERAL: Well-appearing, well-nourished and in no acute distress. HEAD: Atraumatic, normocephalic. EYES: Pupils equal round and reactive to light, extraocular movements intact, sclera anicteric, conjunctiva are normal. ENT: TMs normal, nares patent, oropharynx clear without exudates. Moist mucous membranes. NECK: Normal range of motion, supple without lymphadenopathy or JVD. LUNGS: Amari breath sounds bilaterally but difficult to tell because patient groans with exhalation. HEART: Regular rate and rhythm without murmurs, rubs or gallops. ABDOMEN: Soft, nontender, normoactive bowel sounds. No guarding, no rebound. No masses appreciated. BACK: No CVA tenderness, no spinal tenderness, step-offs or deformities EXTREMITIES: Normal range of motion, no pitting or edema. No clubbing or cyanosis. NEUROLOGICAL: Cranial nerves II through XII grossly intact. Normal speech, normal gait. 5/5 strength, normal movement in all extremities, normal sensation PSYCH: Normal mood, normal affect. SKIN: Warm, dry, normal turgor, no visible rashes or lesions. Source: Patient Exam Limitations: No limitations - Personal History Current Tetanus/Diphtheria Vaccine: Unsure Current Tetanus Diphtheria and Acellular Pertussis (TDAP): Unsure - Medical/Surgical History Hx Asthma: Yes Hx Chronic Respiratory Disease: Yes Hx Diabetes: No Hx Cardiac Disease: No Hx Renal Disease: No Hx Cirrhosis: No Hx Alcoholism: No Hx HIV/AIDS: No Hx Splenectomy or Spleen Trauma: No Other PMH: ashma, COPD, R pneumonectomy, PE - Family History Significant Family History: No pertinent family hx - Social History Smoking Status: Current every day smoker Alcohol Use: Heavy Drug Use: Marijuana Constitutional: Initial Vital Signs Temperature (C) 37.9 C 07/20/16 22:04 Heart Rate 100 07/20/16 22:04 Respiratory Rate 20 07/20/16 22:04 Blood Pressure 137/80 H 07/20/16 22:04 O2 Sat (%) 87 L 07/20/16 22:04 O2 Delivery Mode Room Air O2 (L/minute) 2 Allergies/Adverse Reactions: No Known Allergies Allergy (Verified 05/28/16 17:06) Home Medications: Medication Instructions Recorded Albuterol [Proventil Inhaler HFA 1 - 2 puffs IH Q4HRS PRN 06/01/16 (*)] Medical Decision Making - Diagnostics EKG Interpretation: An EKG obtained and was read and documented in trace view. Please see trace view for full reading and report. Sinus rhythm, unchanged from previous ED Course/Re-evaluation: The patient has an untreated pulmonary embolism and a history of COPD and comes in with a fever and cough. Will obtain a CT of his chest and initiate pneumonia /sepsis workup. 11:00 p.m. the patient is feeling much better after albuterol. Flu swab was just sent. chest CT reveals pulmonary embolism that is unchanged compared to previous and is sitting in the blind ending pulmonary artery where the right pneumonectomy was. It does not appear to be affecting his respiration. No sign of pneumonia seen. Will continue treating for COPD and await flu results. I have paged hospital service for admission. He is still requiring oxygen to stay above 90%. 11:[address] Chaudhry who will admit. We will anticoagulate the patient to try and prevent extension of the PE although currently it is not clinically relevant. CT reading pending Differential Diagnosis: Partial list of the Differential diagnosis considered include but were not limited to; PE, pneumonia, COPD, influenza and although unlikely based on the history and physical exam, I also considered pneumothorax, acute coronary disease. - Data Points Laboratory Results: Laboratory Results 07/20/16 22:00 07/20/16 22:00 Medications Given: Discontinued Medications Albuterol/Ipratropium (Duoneb) 3 ml IH EDNOW ONE Stop: 07/20/16 22:04 Last Admin: 07/20/16 22:21 Dose: 3 ml Sodium Chloride (Ns) 500 mls @ 0 mls/hr IV EDNOW ONE PRN Reason: Wide Open Stop: 07/20/16 22:38 Last Admin: 07/20/16 22:15 Dose: 500 mls Heparin Sodium (Porcine) (Heparin 50 Units/Ml (Premix)) 500 mls @ 0 mls/hr IV EDNOW ONE; Per Protocol PRN Reason: Protocol Stop: 07/20/16 23:11 Last Admin: 07/20/16 23:30 Dose: 500 mls Methylprednisolone Sodium Succinate (Solu-Medrol) 125 mg IVP EDNOW ONE Stop: 07/20/16 22:04 Last Admin: 07/20/16 22:21 Dose: 125 mg Departure - Departure Disposition: Home, Routine, Self-Care Clinical Impression: Chronic obstructive pulmonary disease with acute exacerbation Pulmonary embolism Qualifiers: Pulmonary embolism type: other Chronicity: acute Acute cor pulmonale presence: without acute cor pulmonale Qualified Code(s): I26.99 - Other pulmonary embolism without acute cor pulmonale Condition: Fair
--- NOTE | 2016-07-20 22:13 | CPEKG ---
Heart Rate: 94 RR Interval: 638 P-R Interval: 144 QRSD Interval: 96 QT Interval: 368 QTC Interval: 461 P [place]: 41 QRS [place]: 75 T [place]: 47 EKG Severity - NORMAL ECG - EKG Impression: SINUS RHYTHM EKG Impression: Unchanged from previous Electronically Signed By: Ajay Kellogg 20-Jul-2016 22:23:37
[2016-07-20 22:15] LABS: % IMMATURE GRANULYOCYTES 0.3 % (0.0-1.1); ABSOLUTE IMMATURE GRANULOCYTES 0.03 10^3/uL (0.00-0.10); ADD DIFF? NO; ADD MORPH? NO; ADD SCAN? NO; ATYPICAL LYMPHOCYTE FLAG 20 (0-99); FRAGMENT RBC FLAG 0 (0-99); HEMATOCRIT 46.2 % (40.0-51.0); HEMOGLOBIN 14.8 g/dL (13.7-17.5); LEFT SHIFT FLG 0 (0-99); LIPEMIA HEMOLYSIS FLAG 80 (0-99); MEAN CELL HEMOGLOBIN 27.5 pg (27.9-34.1); MEAN CELL VOLUME 85.7 fL (81.5-99.8); MEAN PLATELET VOLUME 11.4 fL (8.7-11.7); PLATELET CLUMPS FLAG 0 (0-99); PLATELET COUNT 283 10^3/uL (150-400); RED BLOOD CELL COUNT 5.39 10^6/uL (4.40-6.38); RED CELL DISTRIBUTION WIDTH 15.7 % (11.5-15.2)
[2016-07-20 22:17] LABS: ANION GAP 11 mEq/L (8-16); BILIRUBIN,TOTAL 0.8 mg/dL (0.1-1.4); CALCIUM 9.5 mg/dL (8.5-10.4); CARBON DIOXIDE 31 mEq/l (22-31); CHLORIDE 104 mEq/L (97-110); CREATININE 0.8 mg/dL (0.7-1.3); GLOMERULAR FILTRATION RATE > 60; GLUCOSE 93 mg/dL (70-100); POTASSIUM 4.6 mEq/L (3.5-5.2); SODIUM 146 mEq/L (134-144)
[2016-07-20] MEDS ORDERED: IOPAMIDOL (ISOVUE 370) 100 ML BTL IV ONE ×2 (22:29→22:42)
[2016-07-20] MEDS ORDERED: NS 500 ML IV ONE (22:37)
[2016-07-20] MEDS ORDERED: HEPARIN/DEXTROSE 500 ML IV ONE (23:10)
[2016-07-20 23:25] LABS: INR 1.09 (0.83-1.16)
[2016-07-20] MEDS ORDERED: ACETAMINOPHEN 325 MG TAB PO PRN (23:47)
[2016-07-20] MEDS ORDERED: ONDANSETRON DISINTEGRATING 4 MG TAB PO PRN (23:47)
[2016-07-20] MEDS ORDERED: ONDANSETRON 4 MG/2 ML VIAL IVP PRN (23:47)
[2016-07-20] MEDS ORDERED: ALBUTEROL 3 ML DEYVIAL IH PRN (23:53)
[2016-07-20] MEDS ORDERED: MAG HYDROX/AL HYDROX/SIMETH 30 ML UDCUP PO PRN (23:54)
[2016-07-20] MEDS ORDERED: LORazepam 2 MG/ML INJ IVP PRN (23:54)
--- NOTE | 2016-07-20 23:59 | PDGENHP ---
History and Physical - Chief Complaint shortness of breath - History of Present Illness Patient is a 61 year old homeless male with COPD/chronic bronchitis, polysubstance abuse (alcohol, methamphetamine, tobacco), history of lung resection for unclear reason and recently diagnosed pulmonary embolism (06/2016, noncompliant with outpatient xarelto) who presents to the ED complaining of shortness of breath and cough. Patient states symptoms started about 2-3 days ago, with wheezing and cough productive of sputum. He then developed some pleuritic-type chest pain and dyspnea continued to worsen, so he came into the ED. He denies any associated fever, chills, headache, dizziness, pressure-like chest pain or palpitations. On arrival to the ED, patient was afebrile, slightly tachycardic and hypoxic on room air. Labs, including CBC and BMP were within normal limits. CT chest was obtained and revealed persistent R main stem pulm artery PE, unchanged, and no evidence of pneumonia. He was given IV steroids and nebs for an acute COPD exacerbation and admitted to the hospitalist service for further management. History Information - Allergies/Home Medication List Allergies/Adverse Reactions: No Known Allergies Allergy (Verified 05/28/16 17:06) Home Medications: Albuterol [Proventil Inhaler HFA (*)] 1 - 2 puffs IH Q4H PRN 06/01/16 [Last Taken Unknown] I have personally reviewed and updated: family history, medical history, social history, surgical history - Past Medical History Additional medical history: COPD. active tobacco use. chronic, heavy alcohol use. R main PA pulmonary embolism (06/2016) - Surgical History Additional surgical history: R lung resection, reason for this unclear - Family History Positive for: non-pertinent - Social History Smoking Status: Current every day smoker Alcohol Use: Heavy (1/2-1 pint of liquor daily) Drug Use: Marijuana, Other (previous history of amphetamine use) Review of Systems ROS: 10pt was reviewed & negative except for what was stated in HPI & below Physical Exam Temp Pulse Resp BP Pulse Ox 37.9 C 99 20 129/85 H 97 07/20/16 22:04 07/20/16 23:04 07/20/16 23:04 07/20/16 23:04 07/20/16 23:04 Constitutional: no apparent distress, appears nourished, not in pain, unkempt Eyes: PERRL, anicteric sclera, EOMI Ears, Nose, Mouth, Throat: moist mucous membranes, hearing normal, ears appear normal, no oral mucosal ulcers Cardiovascular: regular rate and rhythym, no murmur, rub, or gallop, pulses symmetric bilaterally, No JVD, No edema Peripheral Pulses: 2+: dorsalis-pedis (R), dorsalis-pedis (L) Respiratory: no respiratory distress, expiratory wheeze, bronchial breath sounds Gastrointestinal: normoactive bowel sounds, soft, non-tender abdomen, no palpable masses, No guarding, No rebound Genitourinary: no bladder fullness, no bladder tenderness Skin: warm, normal color, no rashes or abrasions, no fluctuance, no induration, No mottled Musculoskeletal: full muscle strength, no muscle tenderness, normal joint ROM, no joint effusions Neurologic: AAOx3, sensation intact bilaterally, CN II-XII Intact, No weakness, No numbness Psychiatric: interacting appropriately, not anxious, not encephalopathic, thought process linear Lab Data & Imaging Review 07/20/16 22:00 07/20/16 22:00 WBC 8.84 10^3/uL (3.80-9.50) 07/20/16 22:00 RBC 5.39 10^6/uL (4.40-6.38) 07/20/16 22:00 Hgb 14.8 g/dL (13.7-17.5) 07/20/16 22:00 Hct 46.2 % (40.0-51.0) 07/20/16 22:00 MCV 85.7 fL (81.5-99.8) 07/20/16 22:00 MCH 27.5 pg (27.9-34.1) L 07/20/16 22:00 MCHC 32.0 g/dL (32.4-36.7) L 07/20/16 22:00 RDW 15.7 % (11.5-15.2) H 07/20/16 22:00 Plt Count 283 10^3/uL (150-400) 07/20/16 22:00 MPV 11.4 fL (8.7-11.7) 07/20/16 22:00 Neut % (Auto) 70.4 % (39.3-74.2) 07/20/16 22:00 Lymph % (Auto) 18.2 % (15.0-45.0) 07/20/16 22:00 [place] % (Auto) 8.7 % (4.5-13.0) 07/20/16 22:00 Eos % (Auto) 1.6 % (0.6-7.6) 07/20/16 22:00 Baso % (Auto) 0.8 % (0.3-1.7) 07/20/16 22:00 Nucleat RBC Rel Count 0.0 % (0.0-0.2) 07/20/16 22:00 Absolute Neuts (auto) 6.22 10^3/uL (1.70-6.50) 07/20/16 22:00 Absolute Lymphs (auto) 1.61 10^3/uL (1.00-3.00) 07/20/16 22:00 Absolute Monos (auto) 0.77 10^3/uL (0.30-0.80) 07/20/16 22:00 Absolute Eos (auto) 0.14 10^3/uL (0.03-0.40) 07/20/16 22:00 Absolute Basos (auto) 0.07 10^3/uL (0.02-0.10) 07/20/16 22:00 Absolute Nucleated RBC 0.00 10^3/uL (0-0.01) 07/20/16 22:00 Immature Gran % 0.3 % (0.0-1.1) 07/20/16 22:00 Immature Gran # 0.03 10^3/uL (0.00-0.10) 07/20/16 22:00 PT 14.0 SEC (12.0-15.0) 07/20/16 22:00 INR 1.09 (0.83-1.16) 07/20/16 22:00 APTT 27.5 SEC (23.0-38.0) 07/20/16 22:00 VBG Lactic Acid 1.1 mmol/L (0.7-2.1) 07/20/16 22:10 Sodium 146 mEq/L (134-144) H 07/20/16 22:00 Potassium 4.6 mEq/L (3.5-5.2) 07/20/16 22:00 Chloride 104 mEq/L (97-110) 07/20/16 22:00 Carbon Dioxide 31 mEq/l (22-31) 07/20/16 22:00 Anion Gap 11 mEq/L (8-16) 07/20/16 22:00 BUN 11 mg/dL (7-23) 07/20/16 22:00 Creatinine 0.8 mg/dL (0.7-1.3) 07/20/16 22:00 Estimated GFR > 60 07/20/16 22:00 Glucose 93 mg/dL (70-100) 07/20/16 22:00 Calcium 9.5 mg/dL (8.5-10.4) 07/20/16 22:00 Total Bilirubin 0.8 mg/dL (0.1-1.4) 07/20/16 22:00 Influenza Typ A,B (DFA) NEGATIVE FOR FLU (NEGATIVE) 07/20/16 22:54 Visualized and Interpreted imaging results: Yes Interpretation: CT chest: r pneumonectomy, chronic R main stem stump pulmonary embolism. No obvious infiltrate Visualized and Interpreted EKG results: Yes EKG Interpretation: Positive for: normal sinsus rhythm (no st/t wave abnormalities) Assessment & Plan Assessment: patient is a 61-year-old male with a history of COPD, previously diagnosed pulmonary embolism not compliant with outpatient anticoagulation prescription, patient reports due to difficulty accessing the medicine given his financial hardship, who presents to the ED with compliant of shortness of breath. Plan: # acute hypoxic respiratory failure Patient hypoxic on room air on presentation, with wheezing on exam. CT reveals persistent pulmonary embolism without extension and no evidence of pneumonia. Given pulmonary embolism will check TTE to rule out cardiomyopathy as a source of hypoxia. Will also treat for acute COPD exacerbation p.o. steroids, p.r.n. and standing nebs and supplemental O2 p.r.n. # chronic pulmonary embolism patient diagnosed with PE on 06/02/2016, was initiated on Xarelto while inpatient here, and given a prescription for it to continue as an outpatient. However given patient's financial situation, he did not continue this medication after discharge from [facility] in June. CT chest reveals no change in extent of clot burden. Will reinitiate Xarelto and consult case management for assistance in filling his prescriptions as outpatient. # Active tobacco use patient continues to smoke cigarettes, he was advised on the risks of continued tobacco use. Nicotine patch was offered. # chronic, heavy alcohol use patient reports drinking about 1/2 to 1 pt of liquor daily but denies history of withdrawal symptoms. Will place on CIWA protocol, with p.r.n. lorazepam, daily thiamine, folate and multivitamin replacement. #dispo: admit under observation status for mild COPD exacerbation with acute hypoxic respiratory failure # gen: regular diet DVT ppx: on xarelto Full code
[2016-07-21] MEDS: HYDROCODONE/APAP 5/325 TAB PO PRN (00:48)
[2016-07-21] MEDS: RIVAROXABAN 15 MG TAB PO SCH ×3 (01:02→19:02)
[2016-07-21 03:57] LABS: PHENCYCLIDINE URINE BCH < 6 ng/ml (NEGATIVE); PHENCYCLIDINE URINE BCH NEGATIVE (NEGATIVE); TETRAHYDROCANNABINOL URINE 11 ng/mL (NEGATIVE); TETRAHYDROCANNABINOL URINE NEGATIVE (NEGATIVE)
[2016-07-21] MEDS: IPRATROPIUM/ALBUTEROL 3 ML DEYVIAL IH SCH ×4 (05:20→19:45)
[2016-07-21 05:23] LABS: % IMMATURE GRANULYOCYTES 0.4 % (0.0-1.1); ABSOLUTE IMMATURE GRANULOCYTES 0.03 10^3/uL (0.00-0.10); ADD DIFF? NO; ADD MORPH? NO; ADD SCAN? NO; ATYPICAL LYMPHOCYTE FLAG 20 (0-99); FRAGMENT RBC FLAG 30 (0-99); HEMATOCRIT 44.9 % (40.0-51.0); HEMOGLOBIN 14.7 g/dL (13.7-17.5); LEFT SHIFT FLG 0 (0-99); LIPEMIA HEMOLYSIS FLAG 80 (0-99); MEAN CELL HEMOGLOBIN 27.9 pg (27.9-34.1); MEAN CELL HEMOGLOBIN CONCENTR. 32.7 g/dL (32.4-36.7); MEAN CELL VOLUME 85.2 fL (81.5-99.8); MEAN PLATELET VOLUME 11.8 fL (8.7-11.7); PLATELET CLUMPS FLAG 10 (0-99); PLATELET COUNT 244 10^3/uL (150-400); RED BLOOD CELL COUNT 5.27 10^6/uL (4.40-6.38); RED CELL DISTRIBUTION WIDTH 15.4 % (11.5-15.2)
[2016-07-21 05:33] LABS: ANION GAP 13 mEq/L (8-16); CALCIUM 8.9 mg/dL (8.5-10.4); CARBON DIOXIDE 24 mEq/l (22-31); CHLORIDE 107 mEq/L (97-110); CREATININE 0.8 mg/dL (0.7-1.3); GLOMERULAR FILTRATION RATE > 60; GLUCOSE 142 mg/dL (70-100); MAGNESIUM 1.6 mg/dL (1.6-2.3); POTASSIUM 4.4 mEq/L (3.5-5.2); SODIUM 144 mEq/L (134-144)
[2016-07-21 05:44] LABS: INR 1.62 (0.83-1.16); PROTIME(PATIENT) 19.3 SEC (12.0-15.0)
[2016-07-21 05:45] LABS: APTT 33.8 SEC (23.0-38.0); TROPONIN I < 0.012 ng/mL (0-0.034)
[2016-07-21] MEDS ORDERED: ALBUTEROL 60 PUFFS/8 GM MDI IH PRN (08:55)
[2016-07-21] MEDS: FOLIC ACID 1 MG TAB PO SCH (09:55)
[2016-07-21] MEDS: MULTIVITAMINS 1 EACH TAB PO SCH (09:56)
[2016-07-21] MEDS: FAMOTIDINE 20 MG TAB PO SCH ×2 (09:57→20:06)
[2016-07-21] MEDS: predniSONE 20 MG TAB PO SCH (09:57)
--- NOTE | 2016-07-21 13:10 | HOSPPROG ---
Hospitalist Progress Note Assessment/Plan: patient is a 61-year-old male with a history of COPD, previously diagnosed pulmonary embolism not compliant with outpatient anticoagulation prescription, patient reports due to difficulty accessing the medicine given his financial hardship, who presents to the ED with compliant of shortness of breath. Plan: # acute hypoxic respiratory failure Patient hypoxic on room air on presentation, with wheezing on exam. CT reveals persistent pulmonary embolism without extension and no evidence of pneumonia. Given pulmonary embolism will check TTE to rule out cardiomyopathy as a source of hypoxia. Will also treat for acute COPD exacerbation p.o. steroids, p.r.n. and standing nebs and supplemental O2 p.r.n. # chronic pulmonary embolism patient diagnosed with PE on 06/02/2016, was initiated on Xarelto while inpatient here, and given a prescription for it to continue as an outpatient. However given patient's financial situation, he did not continue this medication after discharge from [facility] in June. CT chest reveals no change in extent of clot burden. Will reinitiate Xarelto and consult case management for assistance in filling his prescriptions as outpatient. # Active tobacco use patient continues to smoke cigarettes, he was advised on the risks of continued tobacco use. Nicotine patch was offered. # chronic, heavy alcohol use patient reports drinking about 1/2 to 1 pt of liquor daily but denies history of withdrawal symptoms. Will place on CIWA protocol, with p.r.n. lorazepam, daily thiamine, folate and multivitamin replacement. #dispo: admit under observation status for mild COPD exacerbation with acute hypoxic respiratory failure # gen: regular diet DVT ppx: on xarelto Full code Subjective: Tired. Feeling less short of breath. No pain currently. Objective: Vital Signs Temp Pulse Resp BP Pulse Ox 36.7 C 86 18 86/54 L 95 07/21/16 11:54 07/21/16 11:54 07/21/16 11:54 07/21/16 11:54 07/21/16 11:54 Laboratory Results 07/21/16 04:26 07/21/16 04:26 07/20/16 07/21/16 07/22/16 05:59 05:59 05:59 Intake Total 1210 Output Total 350 Balance 860 PT 19.3 SEC (12.0-15.0) H 07/21/16 04:26 INR 1.62 (0.83-1.16) H 07/21/16 04:26 - Physical Exam Constitutional: not in pain, chronically ill appearing, cachectic Eyes: PERRL, anicteric sclera, EOMI Ears, Nose, Mouth, Throat: moist mucous membranes, hearing normal, ears appear normal Cardiovascular: No JVD, No tachycardia, No edema Respiratory: no respiratory distress, reduced air movement, expiratory wheeze Gastrointestinal: No tenderness, No ascites, No guarding Skin: warm, normal color, No erythema Musculoskeletal: normal joint ROM, no joint effusions, generalized weakness Psychiatric: not anxious, poor insight, poor judgement ICD10 Worksheet Patient Problems: Problems Problem Status Onset Pneumonia Acute Weakness Acute Chronic obstructive pulmonary disease with acute exacerbation Acute Pulmonary embolism Acute
[2016-07-22] MEDS ORDERED: predniSONE 20 MG TAB PO SCH
[2016-07-22] MEDS: IPRATROPIUM/ALBUTEROL 3 ML DEYVIAL IH SCH ×2 (04:47→08:41)
[2016-07-22 08:02] VITALS: BP 111/68; TEMP 98.3
[2016-07-22] MEDS: FAMOTIDINE 20 MG TAB PO SCH (08:08)
[2016-07-22] MEDS: predniSONE 20 MG TAB PO SCH (08:08)
[2016-07-22] MEDS: MULTIVITAMINS 1 EACH TAB PO SCH (08:09)
[2016-07-22] MEDS: RIVAROXABAN 15 MG TAB PO SCH (08:09)
[2016-07-22] MEDS: FOLIC ACID 1 MG TAB PO SCH (08:09)
[2016-07-22] MEDS: HYDROCODONE/APAP 5/325 TAB PO PRN (08:15)
--- NOTE | 2016-07-22 08:50 | HOSPPROG ---
Hospitalist Progress Note Assessment/Plan: patient is a 61-year-old male with a history of COPD, previously diagnosed pulmonary embolism not compliant with outpatient anticoagulation prescription, patient reports due to difficulty accessing the medicine given his financial hardship, who presents to the ED with compliant of shortness of breath. # acute hypoxic respiratory failure * oxygen levels are stable on room air * awaiting echocardiogram * has underlying COPD and a pulmonary emboli #. COPD exacerbation * on steroids and nebulizers # chronic pulmonary embolism * will need a plan to continue Xarelto/he has Medicaid * patient was not compliant with other medications to treat his PE * CT of the chest reveals no change in clot burden * awaiting echo #. Homelessness * CM reserving a bed at the [facility] for tonight # . nicotine dependence/ Active tobacco use # chronic, heavy alcohol use * 1/2 to pint of liquor daily * on CIWA protocol #.Plan: dc after results of echo to get f/u care with [facility] to get script filled for xarelto Subjective: Venkat says he's tired/ asked for a bed at the [facility]. Objective: Vital Signs Temp Pulse Resp BP Pulse Ox 36.8 C 77 16 111/68 93 07/22/16 08:00 07/22/16 08:00 07/22/16 08:00 07/22/16 08:00 07/21/16 22:59 Laboratory Results 07/21/16 04:26 07/21/16 04:26 07/21/16 07/22/16 07/23/16 05:59 05:59 05:59 Intake Total 1210 1500 Output Total 350 900 Balance 860 600 PT 19.3 SEC (12.0-15.0) H 07/21/16 04:26 INR 1.62 (0.83-1.16) H 07/21/16 04:26 - Physical Exam Constitutional: not in pain, chronically ill appearing, unkempt Eyes: PERRL Ears, Nose, Mouth, Throat: hearing normal Cardiovascular: regular rate and rhythym Respiratory: no respiratory distress, rhonchi (few scattered) Gastrointestinal: normoactive bowel sounds Skin: warm Musculoskeletal: full muscle strength Neurologic: AAOx3 Psychiatric: not anxious ICD10 Worksheet Patient Problems: Problems Problem Status Onset Chronic obstructive pulmonary disease with acute exacerbation Acute Pulmonary embolism Acute Pneumonia Acute Weakness Acute
[2016-07-22 08:52] VITALS: PULSE 78; RESP 18; O2SAT 90
--- NOTE | 2016-07-22 12:25 | GDS ---
[f rep st] DISCHARGE SUMMARY DISCHARGE DIAGNOSES: 1. Acute hypoxemic respiratory failure. 2. Chronic obstructive pulmonary disease exacerbation. 3. Chronic pulmonary embolism. 4. Homelessness. 5. Nicotine dependence. 6. Chronic heavy alcohol use. 7. Low TSH. BRIEF HISTORY: The patient is a 61-year-old male with COPD, chronic bronchitis, and polysubstance a buse/history of alcohol, methamphetamine, and tobacco, who was diagnosed with a PE in June 2016. He had been noncompliant with Xarelto. He came to the emergency room with complaints of shortness of breath. A CT chest was obtained and revealed persistent pulmonary artery PE unchanged with no ev idence of pneumonia. Throughout his stay, he improved. He is on room air. He will follow up with [facility], appointment has been arranged. HOSPITAL COURSE PER PROBLEM: 1. Acute hypoxemic respiratory failure. His oxygen levels are stable on room air. An echocardiogr am was performed, which showed an EF of 45% of 50%. He has Doppler evidence for diastolic dysfuncti on. He also has septal wall hypokinesis. The right ventricle is normal in size. The right ventric ular systolic function is mildly reduced. His troponins were noted to be stable, recommending once he is anticoagulated that he will need to get a cardiac stress test. 2. COPD exacerbation. He is on room air. We will continue steroids for several more days. 3. Chronic pulmonary embolism. He will get a prescription for Xarelto b.i.d., and then after a tot al 21 days, he will need to go on this daily. He also has an appointment for followup care with [facility]. 4. Homelessness. Case Management have given him options. He is not allowed to go to the intermediate a t this time. 5. Nicotine dependence. Ongoing active tobacco use. 6. Chronic heavy alcohol use. He drinks approximately 1/2 to a pint of liquor daily. 7. Low TSH. His TSH is 0.462. He needs to get this rechecked in 6 weeks. PENDING LABS AND TESTS: None. CONDITION AT DISCHARGE: Stable. Blood pressure is 111/68, heart rate 77, respiratory rate is 16, O 2 sats on room air 90%, temperature is 36.8 Celsius. MEDICATIONS AT DISCHARGE: Please see the EMR. DISCHARGE INSTRUCTIONS: 1. I explained to him how critical it is that he stays on Xarelto. 2. He needs to get his TSH checked in 6 weeks. 3. He needs to get a cardiac stress test once he is consistently anticoagulated with the Xarelto. Greater than 30 minutes discharging and coordinating care. Copy requested to: Rafaela Hagen [facility] /[id number]/MODL
--- NOTE | 2016-07-22 13:10 | ECHO ---
[id number] + + [address] : : [place] [address] : : [phone] + + Adult Echocardiographic Report + ----+ :Name: GUERDA PICHARDO RStudy Date: 07/22/2016 12:47 PM : : Hospital Admission Number: [id number] Location: 371: :: 1955 Gender: Male Height: 73 in : :Age: 61 yrs Weight: 130 lb : :Reason For Study: Eval LV Fx : : BSA: 1.8 meters2 : :History: SOB, COPD : + ----+ MMode/2D Measurements \T\ Calculations IVSd: 0.71 cm LVIDd: 4.0 cm FS: 38.9 % LVPWd: 1.1 cm LVIDs: 2.5 cm EDV(Teich): 71.5 ml ESV(Teich): 21.6 ml EF(Teich): 69.8 % Normal Measurement Values: + + :LVIDd (3.5-5.7cm) IVSd (0.6-1.1cm) LVPWd (0.6-1.1cm) Aortic Root (2.0-3.7cm)Left Atrium (1.5-4.0cm): :LV Vol(d) (76-115ml) LV Vol(s) (29-48ml) Ejec Fraction (50-65%)PV Joe (0.6- 1.2m/s) TV Joe (0.4-1.0m/s) : :MV E Joe (0.8-1.0m/s)MV A Joe (0.3-1.0m/s)LVOT Joe (0.7-1.2m/s) Asc Ao Joe ( 0.9-1.8m/s) : + + Doppler Measurements \T\ Calculations MV E max joe: Ao V2 max: LV V1 max: PA V2 max: 47.4 cm/sec 129.0 cm/sec 54.3 cm/sec 76.0 cm/sec MV A max joe: Ao max P.7 mmHg LV V1 max PG: PA max P.9 cm/sec 1.2 mmHg 2.3 mmHg MV E/A: 1.1 Left Ventricle The left ventricle is normal in size. There is normal left ventricular wall thickness. Ejection Fraction = 45-50%. There is Doppler evidence for diastolic dysfunction. There is septal wall hypokinesis. Right Ventricle The right ventricle is normal size. Atria The left atrial size is normal. Right atrial size is normal. Mitral Valve The mitral valve is normal. There is no mitral valve stenosis. There is no mitral regurgitation noted. Tricuspid Valve There is trace tricuspid regurgitation. Aortic Valve The aortic valve opens well. There is no aortic stenosis. There is no aortic insufficiency. Pulmonic Valve The pulmonic valve is normal in structure and function. There is no pulmonic valvular regurgitation. Great Vessels The aortic root is normal size. Pericardium/Pleural There is no pericardial effusion. Conclusion A complete two-dimensional transthoracic echocardiogram was performed (2D, M-mode, Doppler and color flow Doppler). There is normal left ventricular wall thickness. Ejection Fraction = 45-50%. There is Doppler evidence for diastolic dysfunction. There is septal wall hypokinesis. The right ventricle is normal size. There is trace tricuspid regurgitation. The aortic valve opens well. The aortic root is normal size. There is no pericardial effusion. Final Reading Physician: Jessica Patelronicchuy signed on 07/22/2016 01:09 PM Performed By: Frankie Mccollum, MOECS
[2016-07-23] MEDS ORDERED: THIAMINE HCL 100 MG TAB PO SCH (09:00)
== END 2016-07-22 13:30 | disposition home or self-care (01) ==
LOC: EDUNIT# → F3E 07-21 00:30
PROVIDERS: ADMIT Internal Medicine; ATTEND Internal Medicine
DX: J44.1 Chronic obstructive pulmonary disease with (acute) exacerbation (principal); I27.82 Chronic pulmonary embolism; Z91.120 Patient's intentional underdosing of medication regimen due to financial hardship; F17.210 Nicotine dependence, cigarettes, uncomplicated; Z59.0 Homelessness; F12.90 Cannabis use, unspecified, uncomplicated
CPT/HCPCS: 71275; 93005; 93306; G0378; 80307; 96374; G0480; J1644; J7512; Q9967

== ENCOUNTER 2016-08-02 18:58 | Emergency (ER) | payer MEDICAID ==
[2016-08-02 19:11] VITALS: O2SAT 97
--- NOTE | 2016-08-02 19:13 | EDPHY ---
H & P Stated Complaint: ETOH; med clearance for assisted Time Seen by Provider: 08/02/16 18:59 HPI/ROS: Chief complaint: Alcohol intoxication, medical clearance for assisted History of present illness: This is a 61-year-old male brought to the emergency department by police after he was found lying on the ground intoxicated. They brought him here for medical clearance. On my evaluation patient is quite agitated. In discussion with patient I attempted ascertain if he was suffering from any current problems. He states the current problems he is suffering from is "the head of the bed is too high" and that "he has a retarded doctor." Further discussion with him he does state he has a cough. Denies other associated signs or symptoms. He denies other complaints. Review of systems: A 10 point review of systems is obtained and other than described above is negative - Medical/Surgical History Hx Asthma: Yes Hx Chronic Respiratory Disease: Yes Hx Diabetes: No Hx Cardiac Disease: No Hx Renal Disease: No Hx Cirrhosis: No Hx Alcoholism: No Hx HIV/AIDS: No Hx Splenectomy or Spleen Trauma: No Other PMH: ashma, COPD, R pneumonectomy, PE - Social History Smoking Status: Current every day smoker - Physical Exam Exam: General Appearance: Alert, nontoxic. Eyes: Pupils equal and round no pallor or injection. ENT, Mouth: Mucous membranes moist. No hemotympanum, no gallego sign, no raccoon eyes. Respiratory: Occasional cough noted. No use of accessary muscles or evidence of respiratory distress. Lung sounds diminished on the right. Cardiovascular: Regular rate and rhythm. Gastrointestinal: Abdomen is soft and nontender, no masses, bowel sounds normal. Neurological: Alert. Strength and sensation intact and symmetrical. Skin: Warm and dry, no rashes. A head-to-toe examination does not reveal lesions consistent with trauma. Musculoskeletal: Head is normocephalic, atraumatic. Neck is supple nontender. Extremities are symmetrical, full range of motion. Psychiatric: Patient is agitated. Constitutional: Initial Vital Signs Temperature (C) 36.4 C 08/02/16 19:09 Heart Rate 68 08/02/16 19:09 Respiratory Rate 20 08/02/16 19:09 Blood Pressure 110/80 08/02/16 19:09 O2 Sat (%) 97 08/02/16 19:09 O2 Delivery Mode Room Air Allergies/Adverse Reactions: No Known Allergies Allergy (Verified 05/28/16 17:06) Home Medications: Medication Instructions Recorded Albuterol [Proventil Inhaler HFA 1 - 2 puffs IH Q4HRS PRN 06/01/16 (*)] Multivitamins [Multivitamin (*)] 1 each PO DAILY #0 tab 07/22/16 Rivaroxaban [Xarelto 15mg (*)] 15 mg PO BID #40 tab 07/22/16 predniSONE 40 mg PO DAILY #7 tablet 07/22/16 Medical Decision Making - Diagnostics Imaging: Chest x-ray shows a right pneumonectomy. It is a stable chest x-ray as compared to previous studies. ED Course/Re-evaluation: Patient seen under the supervision of my secondary supervising physician Dr. Logan Queen. Patient presents to the emergency department with police for medical clearance to assisted. He does appear intoxicated. He is complaining of a cough. Vital signs are stable. Physical exam is benign. Chest x-ray is stable. Patient is requesting and inhaler and is given one. He is discharged with the police to assisted. Differential Diagnosis: Included but not limited to alcohol intoxication, polysubstance abuse, psychiatric disorders, pulmonary infections, unlikely trauma - Data Points Medications Given: Discontinued Medications Albuterol Sulfate (Proventil Inh Prepack) 1 mdi STORMY HESS ONE Stop: 08/02/16 19:55 Last Admin: 08/02/16 19:59 Dose: 1 mdi Departure - Departure Disposition: Other Psych, Not Anthony Clinical Impression: Cough Condition: Good Instructions: Acute Cough (ED) Additional Instructions: Follow-up with primary care doctor for recheck If symptoms worsen or new symptoms develop return to the emergency department for recheck Referrals: Patient,NotPresent [Unknown] - As per Instructions [facility],. [Clinic] - As per Instructions
[2016-08-02] MEDS ORDERED: ALBUTEROL INH PREPACK MDI TAKEHOME ONE (19:54)
[2016-08-02 20:01] VITALS: BP 112/76; PULSE 65; RESP 16; TEMP 97.9
== END 2016-08-02 20:00 ==
LOC: EDUNIT#
DX: R05 Cough (principal); J44.9 Chronic obstructive pulmonary disease, unspecified; F17.200 Nicotine dependence, unspecified, uncomplicated

== ENCOUNTER 2016-09-09 22:39 | Emergency (ER) | payer MEDICAID ==
[2016-09-09 22:55] VITALS: RESP 16; TEMP 97.9
--- NOTE | 2016-09-09 23:17 | EDPHY ---
H & P Stated Complaint: SOB-[place] Time Seen by Provider: 09/09/16 22:41 HPI/ROS: HPI The patient presents with an episode of shortness of breath, brought in by paramedics for this. His room air sat was 92% which improved to 97% on 2 L of supplemental oxygen. He says he felt short of breath when he was asked to leave the [place] station earlier this evening. He is now feeling better. He has not had a cough, fever, leg swelling. He says he is taking his medication. He keeps it in his van. He has not had a fever. REVIEW OF SYSTEMS Constitutional: No fever, no chills. Eyes: No discharge. ENT: No sore throat. Cardiovascular: No chest pain, no palpitations. Respiratory: No cough, + shortness of breath. Gastrointestinal: No abdominal pain, no vomiting. Genitourinary: No hematuria. Musculoskeletal: No back pain. Skin: No rashes. Neurological: No headache. PMHx: COPD, status post pneumonectomy, history of pulmonary embolism Soc Hx: Homeless, 1 pack per day smoker PHYSICAL General Appearance: Alert, no distress Eyes: Pupils equal and round no pallor or injection ENT, Mouth: Mucous membranes moist Respiratory: There are no retractions, he is speaking full sentences in breathing comfortably, decreased breath sounds on the right with normal breath sounds on left Cardiovascular: Regular rate and rhythm Gastrointestinal: Abdomen is soft and non-tender, no masses, bowel sounds normal Neurological: A&O, moves all extremities Skin: Warm and dry, no rashes Musculoskeletal: Neck is supple non tender Extremities: symmetrical, full range of motion Psychiatric: Patient is oriented X 3, there is no agitation Source: Patient, EMS Exam Limitations: No limitations - Personal History Current Tetanus Diphtheria and Acellular Pertussis (TDAP): Unsure - Medical/Surgical History Hx Asthma: Yes Hx Chronic Respiratory Disease: Yes Hx Diabetes: No Hx Cardiac Disease: No Hx Renal Disease: No Hx Cirrhosis: No Hx Alcoholism: No Hx HIV/AIDS: No Hx Splenectomy or Spleen Trauma: No Other PMH: ashma, COPD, R pneumonectomy, PE, R rib fx, R lung Removed - Social History Smoking Status: Current every day smoker Constitutional: Initial Vital Signs Temperature (C) 36.6 C 09/09/16 22:53 Heart Rate 74 09/09/16 22:53 Respiratory Rate 16 09/09/16 22:53 Blood Pressure 112/66 09/09/16 22:53 O2 Sat (%) 92 09/09/16 22:53 O2 Delivery Mode Room Air Allergies/Adverse Reactions: No Known Allergies Allergy (Verified 09/09/16 22:52) Home Medications: Medication Instructions Recorded Lucreciareljanice 09/09/16 Medical Decision Making - Diagnostics Imaging: Imaging Impressions Chest X-Ray 09/09/16 22:55 Impression: Probable mild bronchitis or fluid overload. Differential Diagnosis: This is a 61-year-old man with history of COPD, chronic smoking, status post right-sided pneumonectomy, history of PE who presents with an episode of shortness of breath when he was asked to leave the bus stop earlier today by the police. He currently denies any complaints, has normal pulse oximetry. He has a chest x-ray that looks to be at his baseline. He is not having any cough , fever, tachycardia. He is really asymptomatic. Here, he was able to walk to the bathroom without any respiratory distress. He will be discharged. Differential diagnoses considered include pneumonia, COPD with exacerbation, recurrent pulmonary embolism. Departure - Departure Disposition: Home, Routine, Self-Care Clinical Impression: Shortness of breath, COPD (chronic obstructive pulmonary disease) Condition: Good Instructions: COPD (Chronic Obstructive Pulmonary Disease) (ED) Referrals: [facility] [Outside] - As per Instructions
[2016-09-09 23:46] VITALS: BP 110/66; PULSE 81; O2SAT 91
== END 2016-09-09 23:46 | disposition home or self-care (01) ==
LOC: EDUNIT#
DX: J44.9 Chronic obstructive pulmonary disease, unspecified (principal); J45.909 Unspecified asthma, uncomplicated; F17.200 Nicotine dependence, unspecified, uncomplicated

== ENCOUNTER 2016-09-30 09:45 | Inpatient (IN) | payer MEDICAID ==
--- NOTE | 2016-09-30 10:40 | EDPHY ---
H & P Stated Complaint: Left Toe Pain Time Seen by Provider: 09/30/16 09:46 HPI/ROS: CHIEF COMPLAINT: Left foot pain HISTORY OF PRESENT ILLNESS: 61-year-old male presents emergency department by ambulance complaining of an abscess to his left 3rd toe that he 1st noticed 3 days ago. Patient reports he is homeless, he has had wet shoes and socks on for the last few days. Patient denies fevers, no numbness or tingling in his feet. Patient admits to alcohol use. Last alcohol use was this morning, he reports he drank "just a swig". Patient denies history of diabetes. He reports a chronic cough. Patient denies chest pain. REVIEW OF SYSTEMS: A comprehensive 10 point review of systems is otherwise negative aside from elements mentioned in the history of present illness. Source: Patient, EMS Exam Limitations: No limitations - Personal History Current Tetanus Diphtheria and Acellular Pertussis (TDAP): No - Medical/Surgical History Hx Asthma: Yes Hx Chronic Respiratory Disease: Yes Hx Diabetes: No Hx Cardiac Disease: No Hx Renal Disease: No Hx Cirrhosis: No Hx Alcoholism: No Hx HIV/AIDS: No Hx Splenectomy or Spleen Trauma: No Other PMH: asthma, COPD, R pneumonectomy, PE, R rib fx, R lung Removed - Social History Smoking Status: Current every day smoker Alcohol Use: Heavy - Physical Exam Exam: Physical Exam Gen: Alert and Oriented, disheveled HEENT: PERRL, moist mucous membranes NECK: no meningismus CV: regular rate and regular rhythm PULM: rhonchi ABDOMEN: soft, non tender to palpation, BS present BACK: No CVA tenderness NEURO: Neurologically grossly intact EXTREMITIES: Left ankle and knee with full range of motion, sensation intact to light touch, 2+ pedal pulses, left 3rd toe with wound to dorsal aspect of 3rd toe SKIN: Dorsal aspect of left 3rd toe over PIP joint with ulcer, surrounding erythema and swelling, no lymphangitic streaking. Medial aspect left 2nd toe with ecchymosis and tenderness with great toenail digging into this part of 2nd toe. PSYCH: answers questions appropriately. Constitutional: Initial Vital Signs Temperature (C) 36.5 C 09/30/16 09:47 Heart Rate 102 H 09/30/16 09:47 Respiratory Rate 20 09/30/16 09:47 Blood Pressure 96/68 L 09/30/16 09:47 O2 Sat (%) 92 09/30/16 09:47 O2 Delivery Mode Room Air Allergies/Adverse Reactions: No Known Allergies Allergy (Verified 09/09/16 22:52) Home Medications: Medication Instructions Recorded Albuterol [Proventil Inhaler HFA 1 - 2 puffs IH Q4H PRN 09/30/16 (*)] Rivaroxaban [Xarelto 10mg (*)] 20 mg PO DAILY 09/30/16 Medical Decision Making - Diagnostics Imaging Results: Imaging Impressions Chest X-Ray 09/30/16 10:13 Impression: 1. Probable mild bronchitis without evidence of pneumonia. 2. Stable right pneumonectomy changes. Toe X-Ray 09/30/16 10:13 Impression: 1. Soft tissue swelling in the third toe with no definite evidence of osteomyelitis. If symptoms persist and clinical suspicion warrants, consider MRI. 2. Erosions in the first and fifth toes, suspicious for inflammatory arthritis. ED Course/Re-evaluation: IV established, CBC, chemistry panel, lactic acid and blood cultures ordered. Chest x-ray and left foot x-ray ordered. Patient's blood pressure has been 90s over 60s, he is afebrile, heart rate is between 90 and 110, oxygen saturations are between 88-92. CBC shows white count of 9.6, normal chemistry panel, lactic acid is 2.3. Sepsis protocol has been initiated. Vancomycin has been ordered along with fluid bolus. Blood cultures are pending, patient is admitted to the hospitalist for further treatment and observation. - Data Points Laboratory Results: Laboratory Results 09/30/16 10:55 09/30/16 10:55 09/30/16 09/30/16 09/30/16 12:20 10:55 10:55 WBC RBC Hgb Hct MCV MCH MCHC RDW Plt Count MPV Neut % (Auto) Lymph % (Auto) [place] % (Auto) Eos % (Auto) Baso % (Auto) Nucleat RBC Rel Count Absolute Neuts (auto) Absolute Lymphs (auto) Absolute Monos (auto) Absolute Eos (auto) Absolute Basos (auto) Absolute Nucleated RBC Immature Gran % Immature Gran # VBG Lactic Acid 2.4 mmol/L H mmol/L (0.7-2.1) Sodium 139 mEq/L mEq/L (134-144) Potassium 5.1 mEq/L mEq/L (3.5-5.2) Chloride 101 mEq/L mEq/L (97-110) Carbon Dioxide 28 mEq/l mEq/l (22-31) Anion Gap 10 mEq/L mEq/L (8-16) BUN 21 mg/dL mg/dL (7-23) Creatinine 0.9 mg/dL mg/dL (0.7-1.3) Estimated GFR > 60 Glucose 60 mg/dL L mg/dL (70-100) Calcium 9.7 mg/dL mg/dL (8.5-10.4) Total Bilirubin 1.6 mg/dL H mg/dL (0.1-1.4) 09/30/16 10:55 WBC 9.63 10^3/uL H 10^3/uL (3.80-9.50) RBC 6.22 10^6/uL 10^6/uL (4.40-6.38) Hgb 16.2 g/dL g/dL (13.7-17.5) Hct 50.6 % % (40.0-51.0) MCV 81.4 fL L fL (81.5-99.8) MCH 26.0 pg L pg (27.9-34.1) MCHC 32.0 g/dL L g/dL (32.4-36.7) RDW 15.1 % % (11.5-15.2) Plt Count 226 10^3/uL 10^3/uL (150-400) MPV 11.9 fL H fL (8.7-11.7) Neut % (Auto) 64.9 % % (39.3-74.2) Lymph % (Auto) 17.4 % % (15.0-45.0) [place] % (Auto) 16.3 % H % (4.5-13.0) Eos % (Auto) 0.3 % L % (0.6-7.6) Baso % (Auto) 0.7 % % (0.3-1.7) Nucleat RBC Rel Count 0.0 % % (0.0-0.2) Absolute Neuts (auto) 6.24 10^3/uL 10^3/uL (1.70-6.50) Absolute Lymphs (auto) 1.68 10^3/uL 10^3/uL (1.00-3.00) Absolute Monos (auto) 1.57 10^3/uL H 10^3/uL (0.30-0.80) Absolute Eos (auto) 0.03 10^3/uL 10^3/uL (0.03-0.40) Absolute Basos (auto) 0.07 10^3/uL 10^3/uL (0.02-0.10) Absolute Nucleated RBC 0.00 10^3/uL 10^3/uL (0-0.01) Immature Gran % 0.4 % % (0.0-1.1) Immature Gran # 0.04 10^3/uL 10^3/uL (0.00-0.10) VBG Lactic Acid Sodium Potassium Chloride Carbon Dioxide Anion Gap BUN Creatinine Estimated GFR Glucose Calcium Total Bilirubin Medications Given: Discontinued Medications Albuterol/Ipratropium (Duoneb) 3 ml IH EDNOW ONE Stop: 09/30/16 12:01 Last Admin: 09/30/16 12:28 Dose: 3 ml Vancomycin/Sodium Chloride (Vancomycin 1 Gm (Premix)) 250 mls @ 250 mls/hr IV EDNOW ONE PRN Reason: Protocol Stop: 09/30/16 13:28 Last Admin: 09/30/16 13:47 Dose: 250 mls Sodium Chloride (Ns) 1,600 mls @ 3,200 mls/hr 30 ml/kg infuse over 30 min ( 1600 ml) IV EDNOW ONE Stop: 09/30/16 13:28 Last Admin: 09/30/16 13:51 Dose: Not Given Sodium Chloride (Ns) 1,000 mls @ 3,000 mls/hr IV ONCE ONE Stop: 09/30/16 14:57 Last Admin: 09/30/16 14:47 Dose: 1,000 mls Departure - Departure Disposition: [facility] Clinical Impression: Cellulitis of left foot Unspecified open wound, left foot, initial encounter Qualifiers: Encounter type: initial encounter Qualified Code(s): S91.302A - Unspecified open wound, left foot, initial encounter Condition: Fair
[2016-09-30 11:03] LABS: % IMMATURE GRANULYOCYTES 0.4 % (0.0-1.1); ABSOLUTE IMMATURE GRANULOCYTES 0.04 10^3/uL (0.00-0.10); ADD DIFF? NO; ADD MORPH? NO; ADD SCAN? NO; ATYPICAL LYMPHOCYTE FLAG 0 (0-99); FRAGMENT RBC FLAG 0 (0-99); HEMATOCRIT 50.6 % (40.0-51.0); HEMOGLOBIN 16.2 g/dL (13.7-17.5); LEFT SHIFT FLG 20 (0-99); LIPEMIA HEMOLYSIS FLAG 80 (0-99); MEAN CELL VOLUME 81.4 fL (81.5-99.8); MEAN PLATELET VOLUME 11.9 fL (8.7-11.7); PLATELET CLUMPS FLAG 20 (0-99); PLATELET COUNT 226 10^3/uL (150-400); RED BLOOD CELL COUNT 6.22 10^6/uL (4.40-6.38); RED CELL DISTRIBUTION WIDTH 15.1 % (11.5-15.2)
[2016-09-30 11:20] LABS: ANION GAP 10 mEq/L (8-16); CALCIUM 9.7 mg/dL (8.5-10.4); CARBON DIOXIDE 28 mEq/l (22-31); CHLORIDE 101 mEq/L (97-110); CREATININE 0.9 mg/dL (0.7-1.3); GLOMERULAR FILTRATION RATE > 60; GLUCOSE 60 mg/dL (70-100); POTASSIUM 5.1 mEq/L (3.5-5.2); SODIUM 139 mEq/L (134-144)
[2016-09-30] MEDS ORDERED: IPRATROPIUM/ALBUTEROL 3 ML DEYVIAL IH ONE (12:00)
[2016-09-30] MEDS ORDERED: VANCOMYCIN HCL/NORMAL SALINE 250 ML IV ONE (12:29)
[2016-09-30] MEDS ORDERED: NS 1,600 ML IV ONE ×2 (12:59)
[2016-09-30 13:22] LABS: BILIRUBIN,TOTAL 1.6 mg/dL (0.1-1.4)
[2016-09-30 14:03] LABS: INR 1.15 (0.83-1.16); PROTIME(PATIENT) 14.7 SEC (12.0-15.0)
[2016-09-30] MEDS ORDERED: ZOLPIDEM TARTRATE 5 MG TAB PO PRN (14:03)
[2016-09-30] MEDS ORDERED: ALBUTEROL 3 ML DEYVIAL IH PRN (14:03)
[2016-09-30] MEDS ORDERED: ONDANSETRON 4 MG/2 ML VIAL IVP PRN (14:03)
[2016-09-30] MEDS ORDERED: LORazepam 0.5 MG TAB PO PRN (14:03)
[2016-09-30] MEDS ORDERED: HYDROmorphONE/DILAUDID 1 MG/ML SYR IVP PRN (14:03)
[2016-09-30] MEDS ORDERED: ACETAMINOPHEN 325 MG TAB PO PRN (14:03)
[2016-09-30] MEDS ORDERED: PROMETHAZINE HCL 25 MG TAB PO PRN (14:03)
[2016-09-30] MEDS ORDERED: ONDANSETRON DISINTEGRATING 4 MG TAB PO PRN (14:03)
[2016-09-30 14:04] LABS: APTT 27.9 SEC (23.0-38.0)
[2016-09-30] MEDS ORDERED: ALBUTEROL 60 PUFFS/8 GM MDI IH PRN (14:05)
[2016-09-30] MEDS ORDERED: VODKA 50 ML BOTTLE PO PRN (14:36)
[2016-09-30] MEDS ORDERED: NICOTINE 21 MG/24 HR PATCH TD PRN (14:36)
[2016-09-30] MEDS ORDERED: LORazepam 2 MG/ML INJ IVP PRN (14:36)
[2016-09-30] MEDS ORDERED: MAG HYDROX/AL HYDROX/SIMETH 30 ML UDCUP PO PRN (14:36)
[2016-09-30] MEDS ORDERED: NICOTINE POLACRILEX 2 MG GUM B PRN (14:36)
[2016-09-30] MEDS ORDERED: NS 1,000 ML IV ONE (14:38)
--- NOTE | 2016-09-30 14:50 | PDGENHP ---
History and Physical - Chief Complaint toe pain - History of Present Illness 61 yo M with PMH of homelessness, copd and severe malnutrition as well as PSA presenting with pain and swelling of his left third toe. He states that the only injury he is aware of is that he has been wearing boots that are too small for him and he has had pain in that toe because of that. Today the pain was so bad that he was unable to bear weight on it. He has not had fever or chills or any other changes in his health recently. He does continue to drink daily--he states anywhere from 1/2-1 pint per day. He has never had withdrawal when he doesn't drink but states that he doesn't usually go without drinking. His last drink was this morning. He plans to stop drinking when he dies, but not before. History Information - Allergies/Home Medication List Allergies/Adverse Reactions: No Known Allergies Allergy (Verified 09/09/16 22:52) Home Medications: Albuterol [Proventil Inhaler HFA (*)] 1 - 2 puffs IH Q4H PRN 09/30/16 [Last Taken 09/23/16] Rivaroxaban [Xarelto 10mg (*)] 20 mg PO DAILY 09/30/16 [Last Taken 09/27/16] I have personally reviewed and updated: family history, medical history, social history, surgical history - Past Medical History COPD, pulmonary embolism (recently diagnosed, not compliant with AC intermittently (off x 3 days)) Additional medical history: COPD. active tobacco use. chronic, heavy alcohol use. R main PA pulmonary embolism (06/2016). frostbite with peripheral neuropathy. diastolic dysfunction--EF 45%. polysubstance abuse. severe malnutrition - Surgical History Additional surgical history: R lung resection, 2/2 ptx related to trauma - Family History Positive for: non-pertinent - Social History Smoking Status: Current every day smoker Alcohol Use: Heavy Drug Use: Marijuana, Other (methamphetamine abuse) Additional social history: homeless Review of Systems ROS: 10pt was reviewed & negative except for what was stated in HPI & below Physical Exam Temp Pulse Resp BP Pulse Ox 37.2 C 85 20 105/69 96 09/30/16 14:11 09/30/16 14:11 09/30/16 14:11 09/30/16 14:11 09/30/16 14:11 O2 (L/minute) 1 Constitutional: no apparent distress, chronically ill appearing, unkempt, cachectic Eyes: PERRL Ears, Nose, Mouth, Throat: moist mucous membranes, hearing normal, poor dentition Cardiovascular: regular rate and rhythym, no murmur, rub, or gallop, No edema Respiratory: no respiratory distress, reduced air movement Gastrointestinal: normoactive bowel sounds, soft, non-tender abdomen Genitourinary: no bladder tenderness Skin: warm, normal color Musculoskeletal: no muscle tenderness Neurologic: AAOx3 Psychiatric: interacting appropriately, not anxious, not encephalopathic Lab Data & Imaging Review 09/30/16 10:55 09/30/16 10:55 WBC 9.63 10^3/uL (3.80-9.50) H 09/30/16 10:55 RBC 6.22 10^6/uL (4.40-6.38) 09/30/16 10:55 Hgb 16.2 g/dL (13.7-17.5) 09/30/16 10:55 Hct 50.6 % (40.0-51.0) 09/30/16 10:55 MCV 81.4 fL (81.5-99.8) L 09/30/16 10:55 MCH 26.0 pg (27.9-34.1) L 09/30/16 10:55 MCHC 32.0 g/dL (32.4-36.7) L 09/30/16 10:55 RDW 15.1 % (11.5-15.2) 09/30/16 10:55 Plt Count 226 10^3/uL (150-400) 09/30/16 10:55 MPV 11.9 fL (8.7-11.7) H 09/30/16 10:55 Neut % (Auto) 64.9 % (39.3-74.2) 09/30/16 10:55 Lymph % (Auto) 17.4 % (15.0-45.0) 09/30/16 10:55 [place] % (Auto) 16.3 % (4.5-13.0) H 09/30/16 10:55 Eos % (Auto) 0.3 % (0.6-7.6) L 09/30/16 10:55 Baso % (Auto) 0.7 % (0.3-1.7) 09/30/16 10:55 Nucleat RBC Rel Count 0.0 % (0.0-0.2) 09/30/16 10:55 Absolute Neuts (auto) 6.24 10^3/uL (1.70-6.50) 09/30/16 10:55 Absolute Lymphs (auto) 1.68 10^3/uL (1.00-3.00) 09/30/16 10:55 Absolute Monos (auto) 1.57 10^3/uL (0.30-0.80) H 09/30/16 10:55 Absolute Eos (auto) 0.03 10^3/uL (0.03-0.40) 09/30/16 10:55 Absolute Basos (auto) 0.07 10^3/uL (0.02-0.10) 09/30/16 10:55 Absolute Nucleated RBC 0.00 10^3/uL (0-0.01) 09/30/16 10:55 Immature Gran % 0.4 % (0.0-1.1) 09/30/16 10:55 Immature Gran # 0.04 10^3/uL (0.00-0.10) 09/30/16 10:55 PT 14.7 SEC (12.0-15.0) 09/30/16 13:43 INR 1.15 (0.83-1.16) 09/30/16 13:43 APTT 27.9 SEC (23.0-38.0) 09/30/16 13:43 VBG Lactic Acid 3.0 mmol/L (0.7-2.1) H D 09/30/16 13:43 Sodium 139 mEq/L (134-144) 09/30/16 10:55 Potassium 5.1 mEq/L (3.5-5.2) 09/30/16 10:55 Chloride 101 mEq/L (97-110) 09/30/16 10:55 Carbon Dioxide 28 mEq/l (22-31) 09/30/16 10:55 Anion Gap 10 mEq/L (8-16) 09/30/16 10:55 BUN 21 mg/dL (7-23) 09/30/16 10:55 Creatinine 0.9 mg/dL (0.7-1.3) 09/30/16 10:55 Estimated GFR > 60 09/30/16 10:55 Glucose 60 mg/dL (70-100) L 09/30/16 10:55 Calcium 9.7 mg/dL (8.5-10.4) 09/30/16 10:55 Total Bilirubin 1.6 mg/dL (0.1-1.4) H 09/30/16 10:55 Visualized and Interpreted Chest x-ray results: Yes Chest X-Ray results: normal Visualized and Interpreted imaging results: Yes Interpretation: toe xray without definitie osteomyelitis Assessment & Plan Assessment: 61 yo M with hx of copd as well as PE admitted with LLE cellulitis # LLE cellulitis: on the toe in the setting of extremely poor hygiene and abrasion to the toe. Started on vancomycin, will ask for ID and wound care to consult. Toe xray w/o e/o osteomyelitis and wound appears fairly superficial. No systemic symptoms but states he has had significant pain, will have pt/ot evaluate as well. # PE: has been intermittently non compliant with AC, will resume xarelto, denies any new respiratory sxs # COPD: without e/o acute exacerbation, continue bronchodilators # etoh abuse: does not have any plan to quit, no e/o w/d currently but last drink was this am, will provide prn vodka and monitor on ciwa protocol # lactic acidosis: without other s/s of sepsis with a wbc of only 9k, and no fever or tachycardia. Will monitor until normalizes, is mildly hypotensive but this appears to be chronic. continue prn bolus of NS. # severe malnutrition: last BMI noted to be 14, will ask for dietary consult, patient states much of this is due to homelessness and limited availability of food # pulmonary nodule: noted at last hospitalization in July with recommendation for repeat ct in 3-6 months, will be due for this soon, could complete prior to dc potentially # tobacco dependence: will give nicotine patch and gum, tobacco cessation # observation status, may be able to dc in am if infection improves Patient new to my care. Old records reviewed and summarized as above. Care plan reviewed with ER doctor.
[2016-09-30] MEDS: RIVAROXABAN 10 MG TAB PO SCH (15:48)
[2016-09-30] MEDS: NICOTINE 21 MG/24 HR PATCH TD SCH (15:48)
[2016-09-30] MEDS: IPRATROPIUM/ALBUTEROL 3 ML DEYVIAL IH SCH ×2 (16:09→21:41)
[2016-09-30 16:15] LABS: COLOR YELLOW; LEUKOCYTE ESTERASE,URINE NEGATIVE (NEGATIVE); NITRITE,URINE NEGATIVE (NEGATIVE)
[2016-09-30] MEDS: oxyCODONE IR 5 MG TAB PO PRN ×2 (16:47→20:43)
[2016-09-30] MEDS: PATCH REMOVAL 1 EA PATCH TD SCH (22:05)
[2016-10-01] MEDS: IPRATROPIUM/ALBUTEROL 3 ML DEYVIAL IH SCH ×4 (04:10→20:53)
[2016-10-01 05:12] LABS: % IMMATURE GRANULYOCYTES 0.2 % (0.0-1.1); ABSOLUTE IMMATURE GRANULOCYTES 0.02 10^3/uL (0.00-0.10); ADD DIFF? NO; ADD MORPH? NO; ADD SCAN? NO; ATYPICAL LYMPHOCYTE FLAG 0 (0-99); FRAGMENT RBC FLAG 0 (0-99); HEMATOCRIT 41.4 % (40.0-51.0); HEMOGLOBIN 13.2 g/dL (13.7-17.5); LEFT SHIFT FLG 40 (0-99); LIPEMIA HEMOLYSIS FLAG 80 (0-99); MEAN CELL HEMOGLOBIN 26.4 pg (27.9-34.1); MEAN CELL HEMOGLOBIN CONCENTR. 31.9 g/dL (32.4-36.7); MEAN CELL VOLUME 82.8 fL (81.5-99.8); MEAN PLATELET VOLUME 12.4 fL (8.7-11.7); PLATELET CLUMPS FLAG 10 (0-99); PLATELET COUNT 174 10^3/uL (150-400); RED CELL DISTRIBUTION WIDTH 14.7 % (11.5-15.2)
[2016-10-01 05:30] LABS: ANION GAP 5 mEq/L (8-16); CALCIUM 8.4 mg/dL (8.5-10.4); CARBON DIOXIDE 27 mEq/l (22-31); CHLORIDE 105 mEq/L (97-110); CREATININE 0.7 mg/dL (0.7-1.3); GLOMERULAR FILTRATION RATE > 60; GLUCOSE 71 mg/dL (70-100); MAGNESIUM 1.7 mg/dL (1.6-2.3); POTASSIUM 4.7 mEq/L (3.5-5.2); SODIUM 137 mEq/L (134-144)
[2016-10-01] MEDS: FOLIC ACID 1 MG TAB PO SCH (08:54)
[2016-10-01] MEDS: NICOTINE 21 MG/24 HR PATCH TD SCH (08:55)
[2016-10-01] MEDS: RIVAROXABAN 10 MG TAB PO SCH (08:55)
[2016-10-01] MEDS: MULTIVITAMINS 1 EACH TAB PO SCH (08:55)
[2016-10-01] MEDS: oxyCODONE IR 5 MG TAB PO PRN (09:05)
--- NOTE | 2016-10-01 11:01 | WOCRNPDOC ---
WOCRN Advanced Assessment Note - Skin Integrity Problem, Advanced Assess Left 3rd toe Dressing Type: Open to Air Exudate Amount: Scant Exudate Color: Reddish/Yellow Exudate Characteristic(s): Serosanguinous Integumentary Issue Intervention: Dressing Applied Zoie Wound Tissue: Erythema, Swollen, Painful/Tender Zoie Wound Swelling: Moderate Wound Bed Color: Red, Yellow Wound Bed Constitution: Smooth Tissue, Adhered Slough Site Odor: None Site Measurement - Head-to-Toe Length X Width X Depth (cm): 0.3cmx0.3cmx0.1cm Skin Integrity Problem Comment: Small, discrete, full-thickness wound over the proximal interphalangeal joint on the L 3rd toe. Wound is 50% slough, 50% smooth tissue. Given the erythema noted on his other toes over this same joint, the appearance of this wound is consistent w/ pressure from patient's footwear. Entire toe is swollen, w/ erythema extending to the dorsum of this foot and c/o pain. Assessed site w/ Dr. Triplett, MRI pending to r/o osteomyelitis. Report given to form builder helper Haile.
[2016-10-01] MEDS: [UNRECOGNIZED DRUG - OTHER] PO PRN ×2 (12:06→20:34)
[2016-10-01] MEDS ORDERED: CEPHALEXIN 500 MG CAP PO SCH (14:36)
[2016-10-01] MEDS ORDERED: VANCOMYCIN HCL/NORMAL SALINE 250 ML IV ONE (14:43)
[2016-10-01] MEDS ORDERED: DOXYCYCLINE HYCLATE 100 MG CAP/TAB PO SCH (15:00)
--- NOTE | 2016-10-01 15:14 | HOSPPROG ---
Hospitalist Progress Note Assessment/Plan: 61 yo M with hx of copd as well as PE admitted with LLE cellulitis # LLE cellulitis: on the toe in the setting of extremely poor hygiene and abrasion to the toe. Cultures with ngtd, appears to be improved overnight s/p vanco. Reviewed care plan with ID, will treat today with ancef and likely dc in am on doxy/keflex if mental status improves overnight. # acute encephalopathy: today patient much more somnolent, having a hard time maintaining alertness and answering questions intermittently with just groaning which is an acute change from yesterday. Suspect related to etoh w/d though this is tempered by patient taking etoh while in house. Will monitor overnight but not safe to dc home currently with this level of encephalopathy. # PE: has been intermittently non compliant with AC, will resume xarelto, denies any new respiratory sxs # COPD: without e/o acute exacerbation, continue bronchodilators # etoh abuse: does not have any plan to quit, as above with increased somnolence and confusion today suspect that he is beginning to have increased withdrawal despite receiving etoh, will provide prn whiskey and monitor on ciwa protocol # lactic acidosis: without other s/s of sepsis with a wbc of only 9k, and no fever or tachycardia. suspect type B lactic acidosis 2/2 etoh abuse rather than related to sepsis # severe malnutrition: with BMI of 13.6, dietary consult, patient states much of this is due to homelessness and limited availability of food # pulmonary nodule: noted at last hospitalization in July with recommendation for repeat ct in 3-6 months # tobacco dependence: will give nicotine patch and gum, tobacco cessation # dispo: IP status, with increasing ams and inability to ambulate safely is not safe for dc at this time, will need > 48 hours stay for eval/mgmt of above Care plan reviewed with ID including plans for abx therapy. Subjective: no significant overnight events, today patient is somnolent, minimally arousable, groaning intermittently Objective: Vital Signs Temp Pulse Resp BP Pulse Ox 36.8 C 83 20 97/64 L 92 10/01/16 11:43 10/01/16 14:25 10/01/16 14:25 10/01/16 14:25 10/01/16 14:25 Laboratory Results 10/01/16 04:16 10/01/16 04:16 09/30/16 10/01/16 10/02/16 05:59 05:59 05:59 Intake Total 3280 200 Output Total 900 Balance 2380 200 PT 14.7 SEC (12.0-15.0) 09/30/16 13:43 INR 1.15 (0.83-1.16) 09/30/16 13:43 somnolent but arousable, disheveled, cachectic anicteric poor dentition, op clear rrr no mrg no edema cta b to ant exam soft nt nd no cce warm dry well perfused oriented, somnolent, minimally arousable, moves all 4, mild tremor - Time Spent With Patient Time Spent with Patient: greater than 35 minutes Time Spent with Patient: Greater than 35 minutes spent on this patients care, greater than 50% of time spent counseling, educating, and coordinating care regarding the above mentioned plan. ICD10 Worksheet Patient Problems: Problems Problem Status Onset Cellulitis of left foot Acute Unspecified open wound, left foot, initial encounter Acute Chronic obstructive pulmonary disease with acute exacerbation Acute Pneumonia Acute Pulmonary embolism Acute Weakness Acute
[2016-10-01] MEDS: ceFAZolin 2 GM/DEXTROSE 100 ML IV SCH ×2 (16:20→22:23)
[2016-10-01 18:06] LABS: ALBUMIN 3.3 g/dL (3.5-5.0); BILIRUBIN,TOTAL 1.1 mg/dL (0.1-1.4); BILIRUBIN-CONJUGATED 0.5 mg/dL (0.0-0.5); BILIRUBIN-UNCONJUGATED 0.6 mg/dL (0.0-1.1); TOTAL PROTEIN 6.2 g/dL (6.3-8.2)
[2016-10-01] MEDS ORDERED: NS 500 ML IV ONE (19:24)
[2016-10-01] MEDS: PATCH REMOVAL 1 EA PATCH TD SCH (21:28)
--- NOTE | 2016-10-01 22:46 | GCON ---
[f rep st] CONSULTATION INFECTIOUS DISEASE CONSULTATION DATE OF CONSULTATION: 10/01/2016 REFERRING PHYSICIAN: Idris Martinez MD REASON FOR CONSULTATION: On the left 3rd toe with some redness for further evaluation and opinion. CHIEF COMPLAINT: Pain and redness involving the left 3rd toe. HISTORY OF PRESENT ILLNESS: This is a 61-year-old, male with a past medical history significant for COPD, malnutrition, homelessness, alcohol use, who was admitted yesterday after complaining of pain and swelling of his left 3rd toe. Apparently he has been wearing boots that have been too small for him and he has developed a wound that has broken down. He denied any fevers or shaking chills with this. The area was mildly red and therefore he came in. On initial evaluation, afebrile on admit. White blood cell count was mildly elevated at 9.6 without a left shift. Blood cultures x2 sets were drawn and they are pending. A toe x-ray done which showed no evidence of osteomyelitis. There was soft tissue swelling involving the 3rd toe. There were erosions involving the heads of the 1st and the 5th proximal phalanges as well as the head of the 1st metatarsal suggestive of inflammatory arthritis. The patient was given 1 dose of vancomycin and no further antibiotics so far. White blood cell count came down to 8.7. Infectious Disease is now consulted for further evaluation and opinion. PAST MEDICAL HISTORY: COPD, pulmonary embolism, tobacco use, heavy alcohol use of drinking about 1 pint of whiskey a day, peripheral neuropathy, diastolic dysfunction with ejection fraction of 45%, malnutrition. PAST SURGICAL HISTORY: Significant for right pneumonectomy secondary to trauma. FAMILY HISTORY: Reviewed and found to be noncontributory. SOCIAL HISTORY: He is a heavy smoker, heavy drinker. He uses marijuana occasionally. Occasional use of methamphetamines. He is homeless. MEDICATIONS: As per JUL. ALLERGIES: No known drug allergies. REVIEW OF SYSTEMS: GENERAL: Denies any fevers or shaking chills. HEAD: No headaches. EYES: No change in vision. ENT: No sore throat, difficulty swallowing, ear pain or drainage. CARDIOVASCULAR: Denies any chest pain or rapid heartbeat. RESPIRATORY: Denies any shortness of breath or sputum production. He does have occasional cough. ABDOMEN: No nausea, vomiting, abdominal pain, or diarrhea. : No dysuria. BACK: No back pain. MUSCULOSKELETAL: No other joint pains except for his left 3rd toe. SKIN: No other wounds or rashes. PHYSICAL EXAMINATION: VITAL SIGNS: Temperature current 36.8, pulse is 89, respiratory rate is 18, blood pressure 97/68, saturation 92% on 4 L O2 via nasal cannula. GENERAL: He is sitting up in a chair. No acute respiratory distress. Awake, alert, and oriented. HEENT: Head is normocephalic, atraumatic. Eyes: No conjunctival injection. No petechiae noted. Oropharynx : Several missing teeth. CARDIOVASCULAR: S1, S2. Regular rate and rhythm. No murmurs appreciated. RESPIRATORY: Clear to auscultate bilaterally. ABDOMEN : Positive bowel sounds in all 4 quadrants. Soft, nontender, nondistended. EXTREMITIES: He has mild swelling of the left foot. New joint effusions appreciated in the knee. He does have swelling involving the left 3rd toe with some very minimal redness. SKIN: Warm to touch. There is a small breakdown of skin which is very superficial. No exposure of tendons or bones. Minimal slough overlying. LABS: White blood cell count is 8.7, hemoglobin 13.2, platelets are 174, neutrophil count 64%. Venous lactic acid 2.9. Sodium 137, potassium 4.7, chloride 105, bicarb 27, BUN is 15, creatinine 0.7. Urinalysis is unremarkable. Blood cultures x2 sets are pending. ASSESSMENT: Left 3rd toe with mild cellulitis and a superficial wound. X-ray with no evidence of osteomyelitis. We will give him a dose of vancomycin today and could consider transition to oral antibiotics with doxycycline and Keflex for 10 days. We will arrange for followup in 1 week in our office to further evaluate. If clinically does not improve, may need further evaluation with an MRI at some point. Care discussed and coordinated with the hospitalist team, Dr. Martinez. Thank you very much for the opportunity to care for your patient in consultation. /[id number]/MODL MTDD
[2016-10-02] MEDS ORDERED: CEPHALEXIN 500 MG CAP PO SCH ×2
[2016-10-02] MEDS: IPRATROPIUM/ALBUTEROL 3 ML DEYVIAL IH SCH ×3 (05:13→15:09)
[2016-10-02 07:11] LABS: ANION GAP 7 mEq/L (8-16); CALCIUM 8.9 mg/dL (8.5-10.4); CARBON DIOXIDE 27 mEq/l (22-31); CHLORIDE 103 mEq/L (97-110); CREATININE 0.6 mg/dL (0.7-1.3); GLOMERULAR FILTRATION RATE > 60; GLUCOSE 101 mg/dL (70-100); MAGNESIUM 1.8 mg/dL (1.6-2.3); POTASSIUM 4.3 mEq/L (3.5-5.2); SODIUM 137 mEq/L (134-144)
[2016-10-02] MEDS: ceFAZolin 2 GM/DEXTROSE 100 ML IV SCH (07:53)
[2016-10-02] MEDS: RIVAROXABAN 10 MG TAB PO SCH (08:02)
[2016-10-02] MEDS: FOLIC ACID 1 MG TAB PO SCH (08:02)
[2016-10-02] MEDS: NICOTINE 21 MG/24 HR PATCH TD SCH (08:02)
[2016-10-02] MEDS: MULTIVITAMINS 1 EACH TAB PO SCH (08:02)
--- NOTE | 2016-10-02 08:27 | PCMIDPN ---
Assessment/Plan: 61 yo homeless male, malnourished with underlying COPD/PE LEFT 3rd toe cellulitis with associated wound from rubbing on shoe, no erythema on dorsum of foot. My first exam, erythema on toe mild, moderate pain to palpation. Initially given dose of vancomycin, but transitioned to cefazolin yesterday. No past cultures for MRSA. Tm 37.7 X ray show arthritis 1st and 5th toe, but only soft tissues swelling associated with L 3rd toe (personally reviewed by me) --reasonable to continue cefazolin while in house. Since no evidence of OM on plain film, decrease cefazolin dose to 1gm IV q8 --ok to transition to PO Keflex 500mg TID to complete 7 day course. Call for additional questions from ID Abx #2 cefazolin 2gm IV q8h microbiology 09/30 blood cx (2) pending Time 15 min >50% time spent with education and counseling and review of records Subjective: patient feels L 4th toe a bit less painful Difficulty sleeping last night Objective: Vital Signs Temp Pulse Resp BP Pulse Ox 36.6 C 89 25 H 104/76 89 L 10/02/16 03:56 10/02/16 05:13 10/02/16 05:13 10/02/16 03:56 10/02/16 05:13 Laboratory Results 10/02/16 05:50 10/01/16 10/02/16 10/03/16 05:59 05:59 05:59 Intake Total 700 Output Total 1120 400 Balance -420 -400 - Physical Exam General Appearance: alert, cachetic, other Respiratory: No accessory muscle use Neck: supple Extremities: swelling (L 3rd toe), erythema (mild, left 3rd toe. Isolated to toe.), other (small wound over PIP), No pedal edema, No calf tenderness, No necrosis Abdomen: non-tender, soft Skin: No rash Neuro/Psych: alert ICD10 Worksheet Patient Problems: Problems Problem Status Onset Cellulitis of left foot Acute Unspecified open wound, left foot, initial encounter Acute Chronic obstructive pulmonary disease with acute exacerbation Acute Pneumonia Acute Pulmonary embolism Acute Weakness Acute
[2016-10-02 12:12] VITALS: RESP 16; TEMP 98.1
--- NOTE | 2016-10-02 13:04 | HOSPPROG ---
Hospitalist Progress Note Assessment/Plan: 61 yo M with hx of copd as well as PE admitted with LLE cellulitis # LLE cellulitis: on the toe in the setting of extremely poor hygiene and abrasion to the toe. Cultures with ngtd, continues to improve, currently on ancef. Will transition to keflex for dc. # acute encephalopathy: improved since yesterday, unclear etiology of abrupt change yesterday--? etoh withdrawal or intoxication (was noted to have a bottle of whiskey in his room yesterday). Today back to baseline. # sob: without true hypoxia, patient notes his chronic cough is also worse. He has a pulmonary nodule that was noted at last hospitalization and which is due for repeat imaging so will do that prior to dc. # PE: has been intermittently non compliant with AC, continue xarelto # COPD: without e/o acute exacerbation, continue bronchodilators # etoh abuse: does not have any plan to quit, continue prn whisky and monitor on ciwa for breakthrough withdrawal sxs # lactic acidosis: without other s/s of sepsis with a wbc of only 9k, and no fever or tachycardia. suspect type B lactic acidosis 2/2 etoh abuse rather than related to sepsis # severe malnutrition: with BMI of 13.6, dietary consult, patient states much of this is due to homelessness and limited availability of food # pulmonary nodule: due for follow up imaging, will obtain today prior to dc # tobacco dependence: will give nicotine patch and gum, tobacco cessation # dispo: IP status, likely dc today Subjective: no signficant overnight events, patient back to baseline thinking and alertness, pain is improved, ambulating well Objective: Vital Signs Temp Pulse Resp BP Pulse Ox 36.7 C 87 16 98/59 L 91 L 10/02/16 12:10 10/02/16 12:10 10/02/16 12:10 10/02/16 12:10 10/02/16 12:10 Laboratory Results 10/02/16 05:50 10/01/16 10/02/16 10/03/16 05:59 05:59 05:59 Intake Total 700 Output Total 1120 400 Balance -420 -400 PT 14.7 SEC (12.0-15.0) 09/30/16 13:43 INR 1.15 (0.83-1.16) 05/01/17 13:43 awake and alert, disheveled, cachectic anicteric poor dentition, op clear rrr no mrg no edema cta b to ant exam soft nt nd no cce warm dry well perfused oriented, appropriate, normal gait - Time Spent With Patient Time Spent with Patient: greater than 35 minutes Time Spent with Patient: Greater than 35 minutes spent on this patients care, greater than 50% of time spent counseling, educating, and coordinating care regarding the above mentioned plan. ICD10 Worksheet Patient Problems: Problems Problem Status Onset Cellulitis of left foot Acute Unspecified open wound, left foot, initial encounter Acute Chronic obstructive pulmonary disease with acute exacerbation Acute Pneumonia Acute Pulmonary embolism Acute Weakness Acute
[2016-10-02] MEDS: [UNRECOGNIZED DRUG - OTHER] PO PRN (15:04)
--- NOTE | 2016-10-02 15:33 | PDDCSUM ---
Discharge Summary Discharge Summary: Dates of service 09/30-10/02/16 Consultations: ID Procedures: none Hospital course by problem: # LLE cellulitis: on the toe in the setting of extremely poor hygiene and abrasion to the toe. Cultures with ngtd, continues to improve, improved on ancef and will dc on keflex. # acute encephalopathy: improved since yesterday, unclear etiology of abrupt change yesterday--? etoh withdrawal or intoxication (was noted to have a bottle of whiskey in his room yesterday). Today back to baseline. # sob: without hypoxia, hx of PE and COPD, chest CT unremarkable other than chronic issues # PE: has been intermittently non compliant with AC, continue xarelto # COPD: without e/o acute exacerbation, continue bronchodilators # etoh abuse: does not have any plan to quit, continue prn whisky and monitor on ciwa for breakthrough withdrawal sxs # lactic acidosis: without other s/s of sepsis with a wbc of only 9k, and no fever or tachycardia. suspect type B lactic acidosis 2/2 etoh abuse rather than related to sepsis # severe malnutrition: with BMI of 13.6, dietary consult, patient states much of this is due to homelessness and limited availability of food # pulmonary nodule: f/u imaging unable to fully evaluate and will need repeat CT chest in 3 months with contrast for further evaluation but no suggestion of malignancy on current imaging # tobacco dependence: will give nicotine patch and gum, tobacco cessation counseling DC, homeless, [facility] > 35 minutes spent in dc, more than half in face to face counseling and coordination of care
[2016-10-02 16:39] VITALS: PULSE 85; O2SAT 94
[2016-10-02 17:45] VITALS: BP 94/62
[2016-10-03] MEDS ORDERED: THIAMINE HCL 100 MG TAB PO SCH (09:00)
== END 2016-10-02 18:17 | disposition home or self-care (01) | DRG 602 ==
LOC: EDUNIT# → INTOOBSV 12:30 → F3E 14:07 → OBSVTOIN 10-01 15:22
PROVIDERS: ADMIT Internal Medicine; ATTEND Internal Medicine
DX: L03.116 Cellulitis of left lower limb (principal); G93.40 Encephalopathy, unspecified; E87.2 Acidosis; E43 Unspecified severe protein-calorie malnutrition; Z68.1 Body mass index [BMI] 19.9 or less, adult; R06.02 Shortness of breath; J44.9 Chronic obstructive pulmonary disease, unspecified; F10.10 Alcohol abuse, uncomplicated; R91.1 Solitary pulmonary nodule; F17.200 Nicotine dependence, unspecified, uncomplicated; F12.90 Cannabis use, unspecified, uncomplicated; K59.00 Constipation, unspecified; Z79.01 Long term (current) use of anticoagulants; Z90.2 Acquired absence of lung [part of]; Z86.711 Personal history of pulmonary embolism
CPT/HCPCS: 96365; 97116-GP; 97162-GP; 97165-GO; 97530-GP; 97535-GO; G0378; J0690; J3370

== ENCOUNTER 2016-10-26 08:55 | Emergency (ER) | payer MEDICAID ==
[~2016-10-26 08:55] MED LIST: CEPHALEXIN 500 MG CAP PO SCH; RIVAROXABAN 10 MG TAB PO SCH
[2016-10-26 09:03] VITALS: TEMP 97.3
[2016-10-26] MEDS ORDERED: RIVAROXABAN 10 MG TAB PO ONE (09:17)
--- NOTE | 2016-10-26 09:21 | EDPHY ---
H & P Time Seen by Provider: 10/26/16 09:07 HPI/ROS: CHIEF COMPLAINT: "I ran out of Xarelto" HISTORY OF PRESENT ILLNESS: 61-year-old homeless male with recent hospital admission for left 3rd toe cellulitis, history of pulmonary embolus, discharged with Keflex and Xarelto. He walked to the emergency department today stating that he ran out of Xarelto yesterday, lost his Keflex. He was unable to keep an appointment on October 09 at the [facility] and was unable to establish care at the [facility] stating that he was not clear where he should go or what he should do. This time he denies dyspnea, denies chest pain, he continues to complain of left 3rd toe discomfort with no lymphangitic streaking. He is able to bear weight. Denies: Fever, chills, chest pain, back pain, syncope, near syncope, headache, flu-like symptoms PRIMARY CARE PROVIDER: [facility] REVIEW OF SYSTEMS: A ten point review of systems was performed and is negative with the exception of the items mentioned in the HPI PAST MEDICAL & SURGICAL HISTORY: Recent hospitalization for left 3rd toe cellulitis. History of pulmonary embolus. History of COPD. History of alcohol abuse . SOCIAL HISTORY: homeless. Daily smoker. PHYSICAL EXAM (Prior to examination, patient consented to physical exam, hands were washed and my usual and customary physical exam procedures followed) 1) GENERAL: poorly kept, foul smelling, alert and oriented. Appears to be in no acute distress. Speaking full sentences no signs of respiratory distress 2) HEAD: Normocephalic, atraumatic 3) HEENT: Sclera anicteric. 4) NECK: Full range of motion, no bruit 5) LUNGS: Clear auscultation bilaterally, no wheezes, no rhonchi, no retractions. 6) HEART: Regular rate and rhythm, no murmur, no heave, no gallop. 7) ABDOMEN: No guarding, no rebound, no focal tenderness, 8) MUSCULOSKELETAL: Left 3rd toe dorsal aspect erythema, tenderness. No pain with axial loading of the joint. No lymphangitic streaking. No crepitus. Otherwise, Moving all extremities, no focal areas of tenderness, no obvious trauma. No peripheral edema or discoloration. 9) BACK: no visual or palpable abnormality. 10) SKIN: No rash, no petechiae. 11) Psychiatric: Patient is oriented X 3, there is no agitation. DIFFERENTIAL DIAGNOSIS: in no particular order including but not limited to PE , DVT, cellulitis Smoking Status: Current every day smoker Constitutional: Initial Vital Signs Temperature (C) 36.3 C 10/26/16 09:01 Heart Rate 89 10/26/16 09:01 Respiratory Rate 18 10/26/16 09:01 Blood Pressure 136/76 H 10/26/16 09:01 O2 Sat (%) 93 10/26/16 09:01 O2 Delivery Mode Room Air Allergies/Adverse Reactions: No Known Allergies Allergy (Verified 09/09/16 22:52) Home Medications: Medication Instructions Recorded Acetaminophen [Tylenol 325mg (*)] 650 mg PO Q4HRS PRN #0 tab 10/01/16 Albuterol [Proventil Inhaler HFA 1 - 2 puffs IH Q4H PRN #1 mdi 10/01/16 (*)] Multivitamins [Multivitamin (*)] 1 each PO DAILY tab 10/01/16 Cephalexin [Keflex (*)] 500 mg PO TID #27 cap 10/02/16 Rivaroxaban [Xarelto] 20 mg PO DAILY #30 tab 10/02/16 Cephalexin [Keflex] 500 mg PO TID 7 Days 10/26/16 Rivaroxaban [Xarelto 10mg (*)] 20 mg PO DAILY #8 tab 10/26/16 MDM/Departure - MDM Medications Given: Discontinued Medications Rivaroxaban (Xarelto) 20 mg PO DAILY ONE Stop: 10/26/16 09:18 Last Admin: 10/26/16 10:14 Dose: 20 mg ED Course/Re-evaluation: 9:40 a.m.: The emergency department case management specialist has consulted. Today is Friday long weekend. The case management specialist has [facility] regarding [facility]. The patient has been given a dose of Xarelto in the emergency department and given 4 more doses filled by the hospital [facility] program. This will provide treatment until Friday. On Friday he needs to call or walk into the [facility] for further evaluation and for further dosing as he will need to be Xarelto for few more months. He also lost his Keflex prescription which was being used to treat left 3rd toe cellulitis. On exam of the patient he has mild erythema to his left 3rd toe with no lymphangitic streaking. I do not think that hospitalization is indicated specifically for this. I think that continued treatment with Keflex is appropriate as was recommended in his discharge instructions. We have filled a prescription for Keflex for him as well. At this time he is breathing comfortably, maintaining normal saturations. I think he can be discharged. Discussed the case with secondary supervising physician Dr. Abebe Guerra in the ER. - Depart Disposition: Home, Routine, Self-Care Clinical Impression: Cellulitis of toe of left foot Pulmonary embolism Qualifiers: Pulmonary embolism type: other Chronicity: chronic Acute cor pulmonale presence : without acute cor pulmonale Qualified Code(s): I27.82 - Chronic pulmonary embolism Condition: Good Instructions: Spontaneous Pneumothorax (ED), Cellulitis (ED) Additional Instructions: Call [facility] on OCTOBER 29 and make appointment VICTOR MANUEL to follow up and have your Xarelto prescription refilled Prescriptions: Cephalexin [Keflex] 500 mg PO TID 7 Days Rivaroxaban [Xarelto 10mg (*)] 20 mg PO DAILY #8 tab Referrals: [facility],. [Clinic] - 10/29/16 (On FridayOctober 29 you need to go to the walk-in clinic at [facility] or call the number that we provided you. We have provided you with a few days of Xarelto and Keflex. It is very important you follow up.)
[2016-10-26 10:16] VITALS: BP 130/60; PULSE 85; RESP 16; O2SAT 96
== END 2016-10-26 10:23 | disposition home or self-care (01) ==
DX: L03.032 Cellulitis of left toe (principal); I27.82 Chronic pulmonary embolism; J44.9 Chronic obstructive pulmonary disease, unspecified; F17.200 Nicotine dependence, unspecified, uncomplicated

== ENCOUNTER 2016-11-07 18:41 | Inpatient (IN) | payer MEDICAID ==
[2016-11-07] MEDS ORDERED: NS 1,600 ML IV ONE (19:16)
--- NOTE | 2016-11-07 19:21 | EDPHY ---
H & P Stated Complaint: SOB, hx R pneumonectomy Time Seen by Provider: 11/07/16 19:06 HPI/ROS: CHIEF COMPLAINT: Shortness of breath HISTORY OF PRESENT ILLNESS: Patient is a 61-year-old homeless man with a history COPD and PE as well as right-sided pneumonectomy after rib fracture and pneumothorax. He called an ambulance complaining of shortness of breath. He also has a fever. He does not take any medications although he is supposed to be on Xarelto for history of PE and on antibiotics for a left toe infection. He was admitted 1 month ago for cellulitis of the foot. He is an alcoholic and states that he does not wish to quit drinking. He also smokes. He denies chest pain. REVIEW OF SYSTEMS: Constitutional: denies: chills, fever, recent illness, recent injury EENTM: denies: blurred vision, double vision, nose congestion Respiratory: See HPI Cardiac: denies: chest pain, irregular heart rate, lightheadedness, palpitations Gastrointestinal/Abdominal: denies: abdominal pain, diarrhea, nausea, vomiting, blood streaked stools Genitourinary: denies: dysuria, frequency, hematuria, pain Musculoskeletal: denies: joint pain, muscle pain Skin: See HPI Neurological: denies: headache, numbness, paresthesia, tingling, dizziness, weakness Hematologic/Lymphatic: denies: blood clots, easy bleeding, easy bruising Immunologic/allergic: denies: HIV/AIDS, transplant EXAM: GENERAL: Febrile, not cooperative with questioning HEAD: Atraumatic, normocephalic. EYES: Pupils equal round and reactive to light, extraocular movements intact, sclera anicteric, conjunctiva are normal. ENT: TMs normal, nares patent, oropharynx clear without exudates. Moist mucous membranes. NECK: Normal range of motion, supple without lymphadenopathy or JVD. LUNGS: Bilateral breath sounds, right-sided pneumonectomy scar HEART: Regular rate and rhythm without murmurs, rubs or gallops. ABDOMEN: Soft, nontender, normoactive bowel sounds. No guarding, no rebound. No masses appreciated. BACK: No CVA tenderness, no spinal tenderness, step-offs or deformities EXTREMITIES: Normal range of motion, no pitting or edema. No clubbing or cyanosis. NEUROLOGICAL: Cranial nerves II through XII grossly intact. Normal speech, normal gait. 5/5 strength, normal movement in all extremities, normal sensation PSYCH: Normal mood, normal affect. SKIN: Small lesion over left toe, not erythematous. No drainage Warm, dry, normal turgor, no visible rashes or lesions. Source: Patient Exam Limitations: No limitations - Medical/Surgical History Hx Asthma: Yes Hx Chronic Respiratory Disease: Yes Hx Diabetes: No Hx Cardiac Disease: No Hx Renal Disease: No Hx Cirrhosis: No Hx Alcoholism: Yes Hx HIV/AIDS: No Hx Splenectomy or Spleen Trauma: No Other PMH: asthma, COPD, R pneumonectomy, PE, R rib fx, calorie malnutrition - Family History Significant Family History: No pertinent family hx - Social History Smoking Status: Current every day smoker Alcohol Use: Sober Drug Use: None Constitutional: Initial Vital Signs Temperature (C) 39.5 C H 11/07/16 18:49 Heart Rate 98 11/07/16 18:49 Respiratory Rate 18 11/07/16 18:49 Blood Pressure 111/70 11/07/16 18:49 O2 Sat (%) 94 11/07/16 18:49 O2 Delivery Mode Nasal Cannula O2 (L/minute) 4 Allergies/Adverse Reactions: No Known Allergies Allergy (Verified 09/09/16 22:52) Home Medications: Medication Instructions Recorded NK [No Known Home Meds] 11/07/16 Medical Decision Making - Diagnostics EKG Interpretation: An EKG obtained and was read and documented in trace view. Please see trace view for full reading and report. Sinus rhythm, no acute ischemic changes Imaging: I viewed and interpreted images myself ED Course/Re-evaluation: 8:50 p.m. the patient is desaturating to 87% on room air. Otherwise his lab work and x-ray are reassuring. I will start him on Levaquin and admit to the hospitalist service. He has been given Tylenol for his fever. 9:10 p.m. I discussed the case with Dr. Salas who will admit and requests we restart the patient's Xarelto. Differential Diagnosis: Partial list of the Differential diagnosis considered include but were not limited to; bronchitis, pneumonia, pleural effusion and although unlikely based on the history and physical exam, I also considered acute coronary disease , sepsis, cellulitis, urinary tract infection. - Data Points Laboratory Results: Laboratory Results 11/08/16 12:32 11/08/16 12:32 Microbiology Results: MICROBIOLOGY 11/07/16 19:20 Blood Blood Culture - Preliminary 11/07/16 20:00 Blood Blood Culture - Preliminary Medications Given: Discontinued Medications Acetaminophen (Tylenol) 1,000 mg PO EDNOW ONE Stop: 11/07/16 20:41 Last Admin: 11/07/16 21:15 Dose: 1,000 mg Sodium Chloride (Ns) 1,600 mls @ 3,200 mls/hr 30 ml/kg infuse over 30 min ( 1600 ml) IV EDNOW ONE PRN Reason: Protocol Stop: 11/07/16 19:45 Last Admin: 11/07/16 20:00 Dose: 1,600 mls Sodium Chloride (Ns) 1,000 mls @ 0 mls/hr IV ONCE ONE PRN Reason: As Directed Stop: 11/08/16 17:01 Last Admin: 11/08/16 10:00 Dose: 1,000 mls Levofloxacin (Levaquin) 750 mg PO EDNOW ONE PRN Reason: Protocol Stop: 11/07/16 20:28 Last Admin: 11/07/16 21:30 Dose: 750 mg Rivaroxaban (Xarelto) 15 mg PO EDNOW ONE Stop: 11/07/16 21:46 Last Admin: 11/07/16 21:42 Dose: 15 mg Rivaroxaban (Xarelto) 15 mg PO BIDMEAL ADAM Stop: 05/07/17 07:59 Last Admin: 11/08/16 07:51 Dose: 15 mg Departure - Departure Disposition: [facility] Clinical Impression: Acute bronchitis Qualifiers: Bronchitis organism: unspecified organism Qualified Code(s): J20.9 - Acute bronchitis, unspecified Fever Qualifiers: Fever type: unspecified Qualified Code(s): R50.9 - Fever, unspecified Condition: Fair
[2016-11-07 19:30] LABS: % IMMATURE GRANULYOCYTES 0.3 % (0.0-1.1); ABSOLUTE IMMATURE GRANULOCYTES 0.03 10^3/uL (0.00-0.10); ADD DIFF? NO; ADD MORPH? NO; ADD SCAN? NO; ATYPICAL LYMPHOCYTE FLAG 0 (0-99); FRAGMENT RBC FLAG 20 (0-99); HEMATOCRIT 41.6 % (40.0-51.0); HEMOGLOBIN 13.8 g/dL (13.7-17.5); LEFT SHIFT FLG 90 (0-99); LIPEMIA HEMOLYSIS FLAG 80 (0-99); MEAN CELL HEMOGLOBIN CONCENTR. 33.2 g/dL (32.4-36.7); MEAN CELL VOLUME 81.3 fL (81.5-99.8); MEAN PLATELET VOLUME 11.9 fL (8.7-11.7); PLATELET CLUMPS FLAG 20 (0-99); PLATELET COUNT 254 10^3/uL (150-400); RED BLOOD CELL COUNT 5.12 10^6/uL (4.40-6.38); RED CELL DISTRIBUTION WIDTH 16.4 % (11.5-15.2)
[2016-11-07 19:45] LABS: ANION GAP 13 mEq/L (8-16); BILIRUBIN,TOTAL 0.8 mg/dL (0.1-1.4); CALCIUM 9.4 mg/dL (8.5-10.4); CARBON DIOXIDE 27 mEq/l (22-31); CHLORIDE 99 mEq/L (97-110); CREATININE 0.7 mg/dL (0.7-1.3); GLOMERULAR FILTRATION RATE > 60; GLUCOSE 102 mg/dL (70-100); POTASSIUM 4.4 mEq/L (3.5-5.2); SODIUM 139 mEq/L (134-144)
[2016-11-07 20:07] LABS: INR 1.1 (0.83-1.16); PROTIME(PATIENT) 14.1 SEC (12.0-15.0)
[2016-11-07 20:08] LABS: APTT 28.2 SEC (23.0-38.0)
--- NOTE | 2016-11-07 20:11 | CPEKG ---
Heart Rate: 87 RR Interval: 690 P-R Interval: 140 QRSD Interval: 98 QT Interval: 376 QTC Interval: 453 P [place]: 45 QRS [place]: 85 T Wave [place]: 57 EKG Severity - OTHERWISE NORMAL ECG - EKG Impression: SINUS RHYTHM EKG Impression: BORDERLINE RIGHT AXIS DEVIATION EKG Impression: Unchanged from previous Electronically Signed By: Ajay Kellogg 07-Nov-2016 20:24:45
[2016-11-07] MEDS ORDERED: ACETAMINOPHEN 500 MG TAB PO ONE (20:40)
[2016-11-07] MEDS ORDERED: levOFLOXACIN 750 MG/DEXTROSE/150 ML BAG IV ONE (21:15)
[2016-11-07 21:29] LABS: COLOR YELLOW; LEUKOCYTE ESTERASE,URINE NEGATIVE (NEGATIVE); NITRITE,URINE NEGATIVE (NEGATIVE)
[2016-11-07] MEDS ORDERED: RIVAROXABAN 15 MG TAB PO ONE (21:45)
--- NOTE | 2016-11-07 22:54 | PDGENHP ---
History and Physical - Chief Complaint Shortness of breath - History of Present Illness This is a 61 year old homeless male smoker with history of pulmonary embolism ( 06/2016), COPD, prior pneumonectomy, and medication noncompliance who presented to the emergency department by EMS reporting shortness of breath. States his shortness of breath has been worsening over the past week. It is associated with some fevers and chills. He has also been coughing. His cough has gotten worse and says that he has been coughing nonstop all day. Cough is described as productive. He has been off of his Xarelto in antibiotics for about a week. during the time of my exam the patient is fairly groggy and does not seem to be an entirely reliable historian. History Information - Allergies/Home Medication List Allergies/Adverse Reactions: No Known Allergies Allergy (Verified 09/09/16 22:52) Home Medications: NK [No Known Home Meds] 11/07/16 [Last Taken Unknown] I have personally reviewed and updated: family history, medical history, social history, surgical history - Past Medical History COPD, pulmonary embolism (recently diagnosed, not compliant with AC intermittently (off x 3 days)) Additional medical history: COPD. active tobacco use. chronic, heavy alcohol use. R main PA pulmonary embolism (06/2016). frostbite with peripheral neuropathy. diastolic dysfunction--EF 45%. polysubstance abuse. severe malnutrition - Surgical History Additional surgical history: R lung resection, 2/2 ptx related to trauma - Family History Positive for: non-pertinent - Social History Smoking Status: Current every day smoker Alcohol Use: Sober Drug Use: None Additional social history: homeless Review of Systems ROS: 10pt was reviewed & negative except for what was stated in HPI & below Physical Exam Temp Pulse Resp BP Pulse Ox 37.0 C 93 18 94/64 L 95 11/07/16 22:17 11/07/16 22:17 11/07/16 22:17 11/07/16 22:17 11/07/16 22:17 Constitutional: chronically ill appearing, unkempt, cachectic Eyes: PERRL, anicteric sclera, EOMI Ears, Nose, Mouth, Throat: moist mucous membranes, hearing normal, ears appear normal, no oral mucosal ulcers Cardiovascular: regular rate and rhythym, no murmur, rub, or gallop, No edema Respiratory: reduced air movement, No inspiratory crackles, No rhonchi Gastrointestinal: normoactive bowel sounds, soft, non-tender abdomen, no palpable masses, No guarding, No rebound Genitourinary: no bladder fullness, no bladder tenderness Skin: other ( Left foot without signs of cellulitis) Musculoskeletal: full muscle strength, no muscle tenderness, normal joint ROM, no joint effusions Neurologic: AAOx3, CN II-XII Intact, No facial droop Psychiatric: flat affect Lab Data & Imaging Review 11/07/16 19:20 11/07/16 19:20 WBC 10.00 10^3/uL (3.80-9.50) H 11/07/16 19:20 RBC 5.12 10^6/uL (4.40-6.38) 11/07/16 19:20 Hgb 13.8 g/dL (13.7-17.5) 11/07/16 19:20 Hct 41.6 % (40.0-51.0) 11/07/16 19:20 MCV 81.3 fL (81.5-99.8) L 11/07/16 19:20 MCH 27.0 pg (27.9-34.1) L 11/07/16 19:20 MCHC 33.2 g/dL (32.4-36.7) 11/07/16 19:20 RDW 16.4 % (11.5-15.2) H 11/07/16 19:20 Plt Count 254 10^3/uL (150-400) 11/07/16 19:20 MPV 11.9 fL (8.7-11.7) H 11/07/16 19:20 Neut % (Auto) 77.1 % (39.3-74.2) H 11/07/16 19:20 Lymph % (Auto) 9.4 % (15.0-45.0) L 11/07/16 19:20 Gregory % (Auto) 12.3 % (4.5-13.0) 11/07/16 19:20 Eos % (Auto) 0.4 % (0.6-7.6) L 11/07/16 19:20 Baso % (Auto) 0.5 % (0.3-1.7) 11/07/16 19:20 Nucleat RBC Rel Count 0.0 % (0.0-0.2) 11/07/16 19:20 Absolute Neuts (auto) 7.71 10^3/uL (1.70-6.50) H 11/07/16 19:20 Absolute Lymphs (auto) 0.94 10^3/uL (1.00-3.00) L 11/07/16 19:20 Absolute Monos (auto) 1.23 10^3/uL (0.30-0.80) H 11/07/16 19:20 Absolute Eos (auto) 0.04 10^3/uL (0.03-0.40) 11/07/16 19:20 Absolute Basos (auto) 0.05 10^3/uL (0.02-0.10) 11/07/16 19:20 Absolute Nucleated RBC 0.00 10^3/uL (0-0.01) 11/07/16 19:20 Immature Gran % 0.3 % (0.0-1.1) 11/07/16 19:20 Immature Gran # 0.03 10^3/uL (0.00-0.10) 11/07/16 19:20 PT 14.1 SEC (12.0-15.0) 11/07/16 19:20 INR 1.10 (0.83-1.16) 11/07/16 19:20 APTT 28.2 SEC (23.0-38.0) 11/07/16 19:20 VBG Lactic Acid 1.1 mmol/L (0.7-2.1) 11/07/16 19:20 Sodium 139 mEq/L (134-144) 11/07/16 19:20 Potassium 4.4 mEq/L (3.5-5.2) 11/07/16 19:20 Chloride 99 mEq/L (97-110) 11/07/16 19:20 Carbon Dioxide 27 mEq/l (22-31) 11/07/16 19:20 Anion Gap 13 mEq/L (8-16) 11/07/16 19:20 BUN 20 mg/dL (7-23) 11/07/16 19:20 Creatinine 0.7 mg/dL (0.7-1.3) 11/07/16 19:20 Estimated GFR > 60 11/07/16 19:20 Glucose 102 mg/dL (70-100) H 11/07/16 19:20 Calcium 9.4 mg/dL (8.5-10.4) 11/07/16 19:20 Total Bilirubin 0.8 mg/dL (0.1-1.4) 11/07/16 19:20 Urine Color YELLOW 11/07/16 20:45 Urine Appearance CLEAR 11/07/16 20:45 Urine pH 5.0 (5.0-7.5) 11/07/16 20:45 Ur Specific [place] 1.027 (1.002-1.030) 11/07/16 20:45 Urine Protein NEGATIVE (NEGATIVE) 11/07/16 20:45 Urine Ketones NEGATIVE (NEGATIVE) 11/07/16 20:45 Urine Blood NEGATIVE (NEGATIVE) 11/07/16 20:45 Urine Nitrate NEGATIVE (NEGATIVE) 11/07/16 20:45 Urine Bilirubin NEGATIVE (NEGATIVE) 11/07/16 20:45 Urine Urobilinogen 2.0 EU (0.2-1.0) H 11/07/16 20:45 Ur Leukocyte Esterase NEGATIVE (NEGATIVE) 11/07/16 20:45 Urine Glucose NEGATIVE (NEGATIVE) 11/07/16 20:45 Influenza A,B Rapid Cancelled 11/07/16 21:45 Imaging Review: Impression: 1. Prior right pneumonectomy, with residual right hydropneumothorax , similar to the previous study. 2. Possible mild left bronchitis. 3. No definite left pneumonia. Visualized and Interpreted Chest x-ray results: Yes Assessment & Plan Assessment: This is a 61-year-old male with history of prior pulmonary embolism, tobacco abuse, COPD, and pneumonectomy presenting with: # Shortness of breath in the setting of cough and fever (acute bronchitis vs PE vs occult pneumonia) -flu pending - will send procalcitonin to help determine the presence of acute bacterial infection versus viral -continue Levaquin -continue Xarelto # history of substance abuse - monitor for signs and symptoms of withdrawal He will be placed under observation status. Xarelto for DVT prophylaxis
[2016-11-07] MEDS ORDERED: ONDANSETRON 4 MG/2 ML VIAL IVP PRN (23:04)
[2016-11-07] MEDS ORDERED: ACETAMINOPHEN 325 MG TAB PO PRN (23:04)
[2016-11-07] MEDS ORDERED: IPRATROPIUM/ALBUTEROL 3 ML DEYVIAL IH PRN (23:06)
[2016-11-08] MEDS: guaiFENesin 600 MG TAB.ER PO SCH ×3 (00:47→20:42)
[2016-11-08] MEDS ORDERED: RIVAROXABAN 15 MG TAB PO SCH (08:00)
--- NOTE | 2016-11-08 13:00 | HOSPPROG ---
Hospitalist Progress Note Assessment/Plan: DIAGNOSES: -acute febrile illness with abnormal vital signs of probable respiratory origin but uncertain etiology; infection most likely and does have elevated Procalcitonin -suspect bacterial resp infection, could consider less likely infection of chronic hydropneumothorax -acute on chronic hypoxemic respiratory failure; history of known COPD -Acute sepsis -Acute encephalopathy likely multifactorial -Previous right pneumonectomy with chronic right hydro pneumothorax unchanged on x-ray by report -suspected vitamin deficiencies due to alcohol -Ongoing alcohol and tobacco abuse; high risk of alcohol withdrawal -history of pulmonary embolism, went off his anticoagulant medication a few days before admission -protein calorie malnutrition PLANS: - continue fluid boluses and respiratory support as necessary -Bronchodilators by nebulizer -Corticosteroid -For the moment continue empiric antibiotic pending cultures -resume his usual anticoagulant which will take care of DVT prophylaxis as well -thiamine -CIWA scale protocol SUBJECTIVE: The patient remains extremely somnolent and I am not really able to get a symptom assessment that is reliable. He does state that he feels sore but will not elaborate beyond that in any way. OBJECTIVE Vitals reviewed: During my 1st visit this morning the patient had tachycardia , hypotension and earlier in the morning had a fever to 38 degrees. After a 1 L bolus of normal saline his vital sounds are now stabilized in terms of pulse and blood pressure. He remains afebrile. His respiratory rate is at 24. Exam: somnolent and arousable to open his eyes and to speak but really not conversant all; it is difficult to assess if there is any confusion or disorientation. There is no anxiety and no tremor to suggest withdrawal. skin he was during my 1st visit clammy going along with his abnormal vital signs, but after IV fluid bolus skin is warm dry color ok resps moderately labored lungs very diminished breath sounds is not taking a deep inspiration at this time heart regular abd soft nondistended nontender, bowel sounds present limbs warm, no edema iv site ok Procalcitonin 0.24 Influenza negative cultures negative so far Objective: Vital Signs Temp Pulse Resp BP Pulse Ox 36.8 C 71 14 89/63 L 98 11/08/16 12:55 11/08/16 12:55 11/08/16 12:55 11/08/16 12:55 11/08/16 12:55 11/07/16 11/08/16 11/09/16 06:59 06:59 06:59 Intake Total 1900 400 Output Total 300 200 Balance 1600 200 PT 14.1 SEC (12.0-15.0) 11/07/16 19:20 INR 1.10 (0.83-1.16) 11/07/16 19:20 - Time Spent With Patient Time Spent with Patient: greater than 35 minutes Time Spent with Patient: Greater than 35 minutes spent on this patients care, greater than 50% of time spent counseling, educating, and coordinating care regarding the above mentioned plan. ICD10 Worksheet Patient Problems: Problems Problem Status Onset Acute bronchitis Acute Fever Acute Cellulitis of left foot Acute Chronic obstructive pulmonary disease with acute exacerbation Acute Pneumonia Acute Pulmonary embolism Acute Unspecified open wound, left foot, initial encounter Acute Weakness Acute
[2016-11-08 13:03] LABS: % IMMATURE GRANULYOCYTES 0.3 % (0.0-1.1); ABSOLUTE IMMATURE GRANULOCYTES 0.06 10^3/uL (0.00-0.10); ADD DIFF? NO; ADD MORPH? NO; ADD SCAN? YES; ATYPICAL LYMPHOCYTE FLAG 40 (0-99); FRAGMENT RBC FLAG 20 (0-99); HEMOGLOBIN 13.9 g/dL (13.7-17.5); LIPEMIA HEMOLYSIS FLAG 80 (0-99); MEAN CELL HEMOGLOBIN 26.6 pg (27.9-34.1); MEAN CELL HEMOGLOBIN CONCENTR. 32.3 g/dL (32.4-36.7); MEAN CELL VOLUME 82.4 fL (81.5-99.8); MEAN PLATELET VOLUME 12.5 fL (8.7-11.7); PLATELET CLUMPS FLAG 10 (0-99); PLATELET COUNT 254 10^3/uL (150-400); RED BLOOD CELL COUNT 5.22 10^6/uL (4.40-6.38); RED CELL DISTRIBUTION WIDTH 16.5 % (11.5-15.2)
[2016-11-08 13:06] LABS: LEFT SHIFT FLG 300 (0-99)
[2016-11-08] MEDS ORDERED: LORazepam 1 MG TAB PO PRN (13:11)
[2016-11-08] MEDS ORDERED: LORazepam 2 MG/ML INJ IVP PRN (13:11)
[2016-11-08 13:12] LABS: ANION GAP 7 mEq/L (8-16); CALCIUM 8.6 mg/dL (8.5-10.4); CARBON DIOXIDE 25 mEq/l (22-31); CHLORIDE 107 mEq/L (97-110); CREATININE 0.6 mg/dL (0.7-1.3); GLOMERULAR FILTRATION RATE > 60; GLUCOSE 101 mg/dL (70-100); POTASSIUM 4.1 mEq/L (3.5-5.2); SODIUM 139 mEq/L (134-144)
[2016-11-08 13:43] LABS: SCAN POSITIVE
[2016-11-08 14:02] LABS: ELLIPTOCYTES 1+; PLATELET ESTIMATE ADEQUATE (ADEQ)
[2016-11-08] MEDS: predniSONE 20 MG TAB PO SCH (14:32)
[2016-11-08] MEDS: THIAMINE HCL 100 MG TAB PO SCH (14:32)
[2016-11-08] MEDS ORDERED: NS 1,000 ML IV ONE (17:00)
[2016-11-09 08:15] LABS: % IMMATURE GRANULYOCYTES 0.5 % (0.0-1.1); ADD DIFF? NO; ADD MORPH? NO; ADD SCAN? YES; ATYPICAL LYMPHOCYTE FLAG 0 (0-99); FRAGMENT RBC FLAG 20 (0-99); HEMOGLOBIN 13.1 g/dL (13.7-17.5); LIPEMIA HEMOLYSIS FLAG 80 (0-99); MEAN CELL HEMOGLOBIN CONCENTR. 32.8 g/dL (32.4-36.7); MEAN CELL VOLUME 82.3 fL (81.5-99.8); MEAN PLATELET VOLUME 11.5 fL (8.7-11.7); PLATELET CLUMPS FLAG 0 (0-99); PLATELET COUNT 257 10^3/uL (150-400); RED BLOOD CELL COUNT 4.86 10^6/uL (4.40-6.38); RED CELL DISTRIBUTION WIDTH 16.7 % (11.5-15.2)
[2016-11-09 08:19] LABS: LEFT SHIFT FLG 180 (0-99)
[2016-11-09 08:27] LABS: ANION GAP 6 mEq/L (8-16); CALCIUM 9.2 mg/dL (8.5-10.4); CARBON DIOXIDE 27 mEq/l (22-31); CHLORIDE 106 mEq/L (97-110); CREATININE 0.6 mg/dL (0.7-1.3); GLOMERULAR FILTRATION RATE > 60; GLUCOSE 102 mg/dL (70-100); MAGNESIUM 1.8 mg/dL (1.6-2.3); POTASSIUM 4.5 mEq/L (3.5-5.2); SODIUM 139 mEq/L (134-144)
[2016-11-09] MEDS: THIAMINE HCL 100 MG TAB PO SCH (08:31)
[2016-11-09] MEDS: predniSONE 20 MG TAB PO SCH (08:31)
[2016-11-09] MEDS: RIVAROXABAN 20 MG TAB PO SCH (08:31)
[2016-11-09] MEDS: guaiFENesin 600 MG TAB.ER PO SCH ×2 (08:32→20:19)
[2016-11-09 09:52] LABS: SCAN POSITIVE
[2016-11-09 09:54] LABS: PLATELET ESTIMATE ADEQUATE (ADEQ)
--- NOTE | 2016-11-09 11:46 | HOSPPROG ---
Hospitalist Progress Note Assessment/Plan: -acute febrile illness with abnormal vital signs of probable respiratory origin but uncertain etiology; infection most likely and does have elevated Procalcitonin -suspect bacterial resp infection, could consider less likely infection of chronic hydropneumothorax -hypotension (asymptomatic) -cont to monitor -acute on chronic hypoxemic respiratory failure; history of known COPD -Acute sepsis (improving) with persistent leukocytosis -Acute encephalopathy likely multifactorial (improving) -Previous right pneumonectomy with chronic right hydro pneumothorax unchanged on x-ray by report -suspected vitamin deficiencies due to alcohol -Ongoing alcohol and tobacco abuse; high risk of alcohol withdrawal -history of pulmonary embolism, went off his anticoagulant medication a few days before admission -protein calorie malnutrition PLANS: - continue fluid boluses and respiratory support as necessary -Bronchodilators by nebulizer -Corticosteroid -For the moment continue empiric antibiotic pending cultures -resume his usual anticoagulant which will take care of DVT prophylaxis as well -thiamine -CIWA scale protocol Subjective: feeling better. still weak. still coughing. not strong wnough to dc to retirement Objective: Vital Signs Temp Pulse Resp BP Pulse Ox 36.6 C 56 L 18 94/69 L 92 11/09/16 11:17 11/09/16 11:17 11/09/16 11:17 11/09/16 11:17 11/09/16 11:17 Laboratory Results 11/09/16 08:00 11/09/16 08:00 11/08/16 11/09/16 11/10/16 05:59 05:59 05:59 Intake Total 2400 Output Total 500 Balance 1900 PT 14.1 SEC (12.0-15.0) 11/07/16 19:20 INR 1.10 (0.83-1.16) 11/07/16 19:20 - Physical Exam Constitutional: chronically ill appearing Cardiovascular: regular rate and rhythym, no murmur, rub, or gallop Respiratory: no respiratory distress, reduced air movement (right lung field), No inspiratory crackles, No rhonchi Gastrointestinal: normoactive bowel sounds, soft, non-tender abdomen, no palpable masses, No guarding, No rebound ICD10 Worksheet Patient Problems: Problems Problem Status Onset Pneumonia Acute Weakness Acute Chronic obstructive pulmonary disease with acute exacerbation Acute Pulmonary embolism Acute Unspecified open wound, left foot, initial encounter Acute Cellulitis of left foot Acute Acute bronchitis Acute Fever Acute
[2016-11-09] MEDS: NICOTINE 21 MG/24 HR PATCH TD SCH (17:25)
[2016-11-10] MEDS ORDERED: RIVAROXABAN 20 MG TAB PO SCH
[2016-11-10 05:26] LABS: % IMMATURE GRANULYOCYTES 0.6 % (0.0-1.1); ABSOLUTE IMMATURE GRANULOCYTES 0.11 10^3/uL (0.00-0.10); ADD DIFF? NO; ADD MORPH? NO; ADD SCAN? NO; ATYPICAL LYMPHOCYTE FLAG 70 (0-99); FRAGMENT RBC FLAG 20 (0-99); HEMATOCRIT 39.3 % (40.0-51.0); HEMOGLOBIN 12.8 g/dL (13.7-17.5); LEFT SHIFT FLG 50 (0-99); LIPEMIA HEMOLYSIS FLAG 80 (0-99); MEAN CELL HEMOGLOBIN 26.5 pg (27.9-34.1); MEAN CELL HEMOGLOBIN CONCENTR. 32.6 g/dL (32.4-36.7); MEAN CELL VOLUME 81.4 fL (81.5-99.8); PLATELET CLUMPS FLAG 0 (0-99); PLATELET COUNT 275 10^3/uL (150-400); RED BLOOD CELL COUNT 4.83 10^6/uL (4.40-6.38); RED CELL DISTRIBUTION WIDTH 16.7 % (11.5-15.2)
[2016-11-10 05:57] LABS: ANION GAP 8 mEq/L (8-16); CALCIUM 9.5 mg/dL (8.5-10.4); CARBON DIOXIDE 26 mEq/l (22-31); CHLORIDE 105 mEq/L (97-110); CREATININE 0.7 mg/dL (0.7-1.3); GLOMERULAR FILTRATION RATE > 60; GLUCOSE 92 mg/dL (70-100); MAGNESIUM 1.8 mg/dL (1.6-2.3); POTASSIUM 4.3 mEq/L (3.5-5.2); SODIUM 139 mEq/L (134-144)
[2016-11-10] MEDS: predniSONE 20 MG TAB PO SCH (07:57)
[2016-11-10] MEDS: THIAMINE HCL 100 MG TAB PO SCH (07:57)
[2016-11-10] MEDS: RIVAROXABAN 20 MG TAB PO SCH (07:57)
[2016-11-10] MEDS: guaiFENesin 600 MG TAB.ER PO SCH (07:57)
[2016-11-10] MEDS: NICOTINE 21 MG/24 HR PATCH TD SCH (07:57)
[2016-11-10 08:07] VITALS: BP 107/66; PULSE 72; RESP 90; TEMP 98.1; O2SAT 18
[2016-11-10] MEDS ORDERED: IBUPROFEN 600 MG TAB PO ONE (09:54)
--- NOTE | 2016-11-10 14:40 | GDS ---
[f rep st] DISCHARGE SUMMARY DISCHARGE DIAGNOSES: 1. Community-acquired pneumonia. 2. Acute on chronic hypoxemic respiratory failure with known chronic obstructive pulmonary disease and right lobectomy. 3. Resolved acute sepsis. 4. Resolved acute encephalopathy. 5. Suspect vitamin D deficiency. 6. History of alcohol abuse. 7. History of tobacco use. 8. History of pulmonary embolus. 9. Protein calorie malnutrition. HOSPITAL COURSE: Acute respiratory failure and sepsis in the setting of community-acquired pneumoni a. The patient was admitted to the hospital where he was started on IV levofloxacin and steroids. Over the past few days his respiratory status has improved and on the day of discharge his oxygen sa turation is in the 90s on room air. The patient does have a history of PE and had been noncompliant with his anticoagulation. He was restarted on Xarelto during this hospital stay and will be discha rged with Xarelto. PHYSICAL EXAMINATION: VITAL SIGNS: On the day of discharge, blood pressure 107/66, pulse 72, respi ratory rate 18, O2 saturation 90% on room air. Temperature afebrile. GENERAL: No acute distress. HEART: S1, S2. LUNGS: Clear. Right lung rivera are diminished. ABDOMEN: Soft. EXTREMITIES: No edema. PERTINENT LABORATORY AND X-RAY DATA: Chest x-ray done 11/07/2016, refer to report. Blood cultures done on admission: No growth. DISCHARGE MEDICATIONS: Please refer to Discharge Medication Reconciliation in [facility] for details. DISCHARGE INSTRUCTIONS: The patient was discharged from the hospital where he should follow up with his primary care provider early next week. He was educated to stop smoking and drinking. He was e ducated on the importance of compliance with anticoagulation in the setting of his history of PEs. /[id number]
[2016-11-11] MEDS ORDERED: THIAMINE HCL 100 MG TAB PO SCH (09:00)
== END 2016-11-10 12:44 | disposition home or self-care (01) | DRG 871 ==
LOC: EDUNIT# → F3E 21:56 → OBSVTOIN 11-08 17:58
PROVIDERS: ADMIT Internal Medicine; ATTEND Family Medicine
DX: A41.9 Sepsis, unspecified organism (principal); J18.8 Other pneumonia, unspecified organism; J96.21 Acute and chronic respiratory failure with hypoxia; G93.49 Other encephalopathy; E43 Unspecified severe protein-calorie malnutrition; J44.9 Chronic obstructive pulmonary disease, unspecified; T45.516A Underdosing of anticoagulants, initial encounter; F10.20 Alcohol dependence, uncomplicated; Z86.711 Personal history of pulmonary embolism; Z72.0 Tobacco use; Z90.2 Acquired absence of lung [part of]
CPT/HCPCS: G0378; J1956